=== PATIENT | female | born 1970 | race Caucasian/White ===

== ENCOUNTER 2020-03-27 16:27 | Emergency (ER) | payer MEDICARE, OTHER, SELFPAY ==
[2020-03-27 16:40] VITALS: BP 110/70; PULSE 98; RESP 18; TEMP 36.7; O2SAT 98
--- NOTE | 2020-03-27 16:44 | ED.GENADULT ---
HPI - General Adult General Chief complaint: Skin/Abscess/Foreign Body Stated complaint: Possible Fungus on toe Time Seen by Provider: 03/27/20 16:44 Source: patient and RN notes reviewed Mode of arrival: ambulatory Limitations: no limitations History of Present Illness HPI narrative: This is a 49 years old female presented office for evaluation of right toenail discoloration. She noticed the tip of her great toenail was turning white so she took her red nail turkmen off and noticed some dark color at the bottom her toenail. Denies/recall any injury or trauma to her toe. Denies any associated symptoms with her toe which include pain, redness, or swelling. Denies history of fungal nail toe. She always go to the same nails salon. Related Data Home Medications Medication Instructions Recorded Confirmed aripiprazole 10 mg PO DAILY 03/27/20 03/27/20 benztropine 2 mg PO DAILY 03/27/20 03/27/20 divalproex 1,500 mg PO HS 03/27/20 03/27/20 lamotrigine 450 mg PO HS 03/27/20 03/27/20 venlafaxine 150 mg PO DAILY 03/27/20 03/27/20 Allergies Allergy/AdvReac Type Severity Reaction Status Date / Time No Known Allergies Allergy Verified 03/27/20 16:32 Review of Systems Review of Systems: Narrative: CONSTITUTIONAL: Denies fever, chills. CARDIOVASCULAR: Denies chest pain, palpitation RESPIRATORY: Denies dyspnea GASTROINTESTINAL: Denies abdominal pain, nausea, vomiting SKIN: Reports right great toe with white nail; concerns it might fungal nail MUSCULOSKELETAL: Denies acute back pain NEUROLOGIC: Denies lightheaded All other systems reviewed are negative, except as documented in HPI. PMFSH Past Medical History Medical History Anxiety and depression Tremor of both hands Comments At time of signature, I agree with nursing past medical, surgical, social and family history. There is no relevant family history pertinent to the presenting complaint. Exam Narrative: Exam Narrative: GENERAL: This is a well-nourished, well-developed patient, in no apparent distress. CARDIOVASCULAR: Regular rate and rhythm without murmurs, gallops, or rubs. RESPIRATORY: Clear to auscultation. Breath sounds equal bilaterally. No wheezes, rales, or rhonchi. GASTROINTESTINAL: Abdomen soft, non-tender, nondistended. Bowel sounds are active. No hepato-splenomegaly, or palpable masses. No guarding. NEURO: awake, alert, and oriented to person, place and time. There were no obvious focal neurologic abnormalities. Steady gait EXTREMITIES: ROM in all toes. Right great toe noted subungual hematoma nail; however no needed to do trepanation since it does not hurt with palpation. Jasper Coma Scale Eye Opening: Spontaneous 4 Gurpreet Coma Scale Motor: Obeys Commands 6 Gurpreet Coma Scale Verbal: Oriented 5 Medical Decision Making MDM Narrative Medical decision making narrative: Discharge instructions reviewed with patient, as well as provided in writing per nursing staff. The instructions also include specific and strict return/GO TO THE ER as well as f/u information. All questions have been answered, and the patient deny any further questions with discharge and discharge plan. Differential Diagnosis Differential Diagnosis: tinea, dermatitis, psoriasis Critical Care Time Critical Care Time Critical Care Time: No Discharge Plan Discharge Clinical Impression: Subungual hematoma of great toe Patient Disposition: Home, Self-Care Condition: Stable Instructions: Subungual Hematoma (ED) Additional Instructions: -It does not look like a fungal nail; it is likely caused by trauma/injury to toenail that you did not recall. -You can trim the top of the nail Follow up with your doctor as schedule. Prescriptions: No Action lamotrigine 150 mg tablet 450 mg PO HS RF: 0 venlafaxine 150 mg capsule,extended release 24hr 150 mg PO DAILY RF: 0 divalproex 500 mg tablet extended release 24
== END 2020-03-27 17:00 | disposition home or self-care (01) ==
PROVIDERS: Emergency Provider Nurse Practitioner; PCP Internal Medicine
DX: S90.211A Contusion of right great toe with damage to nail, initial encounter (principal); F41.9 Anxiety disorder, unspecified; F32.9 Major depressive disorder, single episode, unspecified; X58.XXXA Exposure to other specified factors, initial encounter
CPT/HCPCS: 99201; G0463

== ENCOUNTER 2020-08-03 17:31 | Emergency (ER) | payer MEDICARE, OTHER, SELFPAY ==
[2020-08-03 18:06] VITALS: BP 119/57; PULSE 104; RESP 16; TEMP 35.8; O2SAT 98
--- NOTE | 2020-08-03 18:08 | ED.WOUNDLAC ---
HPI - Wound/Laceration General Chief Complaint: Wound/Laceration Stated Complaint: Blister Time Seen by Provider: 08/03/20 18:25 Source: patient and RN notes reviewed Mode of arrival: ambulatory Limitations: no limitations History of Present Illness HPI narrative: 49-year-old female presents with concern for blisters to the second digit of her left hand. Reports 5 small blisters started 3 days ago and came together to be one larger blister. She reports redness, swelling, tenderness surrounding the blisters. Reports similar instances in the past on the same finger, that healed on their own. She denies any fever, body aches, chills, sweats, disuse of the digit, musculoskeletal pain. Extremity Location: Left: hand Related Data Home Medications Medication Instructions Recorded Confirmed aripiprazole 10 mg PO DAILY 03/27/20 08/03/20 benztropine 2 mg PO DAILY 03/27/20 08/03/20 divalproex 1,500 mg PO HS 03/27/20 08/03/20 lamotrigine 450 mg PO HS 03/27/20 08/03/20 venlafaxine 150 mg PO DAILY 03/27/20 08/03/20 fluconazole 150 mg PO ONCE 08/03/20 08/03/20 [id number]-jyuqryhqp-copyldwo 1 inh INHALATION DAILY 08/03/20 08/03/20 [Trelegy Ellipta] Allergies Allergy/AdvReac Type Severity Reaction Status Date / Time No Known Allergies Allergy Verified 08/03/20 18:13 Review of Systems Review of Systems: Narrative: CONSTITUTIONAL: Denies malaise, chills, sweats, or fever. CARDIOVASCULAR: Denies chest pain, palpitations, or edema. RESPIRATORY: Denies cough or dyspnea. SKIN: Reports blisters, tenderness, redness to the second digit of left hand on the palmar aspect MUSCULOSKELETAL: Denies musculoskeletal pain or myalgia. NEUROLOGIC: Denies numbness, weakness All systems reviewed & are unremarkable except as noted in HPI and below PMFSH Past Medical History Medical History (Updated 08/03/20 @ 18:38 by Gloria Umaña NP) Anxiety and depression Tremor of both hands Comments At time of signature, agree with nursing past medical, surgical, social and family history. There is no relevant family history pertinent to the presenting complaint Exam Narrative: Exam Narrative: GENERAL: Well-appearing, well-nourished, and in no acute distress. HEAD: Normocephalic EYES: PERRLA, conjunctivae clear NECK: Supple. CHEST: Speaks in full sentences. No respiratory distress. HEART: Regular rate and rhythm. Normal and equal peripheral pulses. EXTREMITIES: First digit of left hand has normal strength and sensation. 5/5 strength with digit flexion, extension. Range of motion normal. No clubbing, cyanosis, or edema noted. No tenderness. Skin intact. Normal digital cascade with flexion of fingers, median, ulnar and radial nerve intact. Normal sensation of each side of finger. Can perform 'okay' sign, 'cross over finger test of index and middle fingers' and 'thumbs up' sign. No scissoring. Normal thumb opposition. Good capillary refill and radial pulse. Distal capillary refill less than 3 seconds. SKIN: Warn, dry, intact, pink. 3 confluent blisters, fluctuant with small amount of purulent material visible noted to the palmar aspect of the second digit of the left hand between the DIP and PIP joints NEURO: Alert and oriented x3. PSYCH: Normal mood and affect Course Course Emergency Course: Patient is aware of diagnosis, understands and agrees to treatment plan. Anticipatory guidance given. Patient agrees to follow-up as directed and is aware of reasons to seek care at the emergency department. Portions of this record may have been created with voice recognition software Vital Signs Vital signs: Vital Signs Temperature 96.4 F L 08/03/20 18:06 Pulse Rate 104 H 08/03/20 18:06 Respiratory Rate 16 08/03/20 18:06 Blood Pressure 119/57 L 08/03/20 18:06 Pulse Oximetry 98 08/03/20 18:06 Temperature 96.4 F L 08/03/20 18:06 Pulse Rate 104 H 08/03/20 18:06 Respiratory Rate 16 08/03/20 18:06 Blood Pressure 119/57 L 08/03/20 18:06
== END 2020-08-03 18:46 | disposition home or self-care (01) ==
PROVIDERS: Emergency Provider Nurse Practitioner; PCP Internal Medicine
DX: L02.522 Furuncle left hand (principal); F41.9 Anxiety disorder, unspecified; F32.9 Major depressive disorder, single episode, unspecified
CPT/HCPCS: 10160; 87070; 87205; 99213; G0463

== ENCOUNTER 2021-04-23 08:03 | Emergency (ER) | payer MEDICARE, OTHER, SELFPAY ==
[2021-04-23 08:10] VITALS: BP 144/73; PULSE 88; RESP 16; TEMP 37.3; O2SAT 99
--- NOTE | 2021-04-23 08:22 | ED.EYEPROB ---
HPI - Eye Problem General Chief complaint: Eye Problems Stated complaint: left eye Time Seen by Provider: 04/23/21 08:22 Source: patient and RN notes reviewed Mode of arrival: ambulatory Limitations: no limitations History of Present Illness HPI Narrative: 50-year-old female presents with concern for red bump to the left lower eyelid. Reports has been there for several days, reports a small amount of drainage in the corner of her eye when she wakes up. She denies any vision changes, eye redness or pain. Denies any other upper respiratory symptoms. MD chief complaint: other (eyelid problem) Related Data Home Medications Medication Instructions Recorded Confirmed aripiprazole 10 mg PO DAILY 03/27/20 04/23/21 divalproex 1,500 mg PO HS 03/27/20 04/23/21 lamotrigine 450 mg PO HS 03/27/20 04/23/21 venlafaxine 150 mg PO DAILY 03/27/20 04/23/21 [id number]-ljzebercv-qrfngzrm 1 inh INHALATION DAILY 08/03/20 04/23/21 [Trelegy Ellipta] Allergies Allergy/AdvReac Type Severity Reaction Status Date / Time No Known Allergies Allergy Verified 04/23/21 08:16 Review of Systems Review of Systems: CONSTITUTIONAL: Denies malaise, chills, sweats, or fever. EYES: Denies visual changes, redness. Reports red bump on the lower left eyelid with small amount of crusty drainage in the morning ENT: Denies rhinorrhea, congestion, sinus pain, otalgia or sore throat. SKIN: Denies rash or itching. All systems reviewed & are unremarkable except as noted in HPI and below PMFSH Past Medical History Medical History (Updated 04/23/21 @ 08:34 by Gloria Umaña NP) Anxiety and depression Tremor of both hands Comments At time of signature, agree with nursing past medical, surgical, social and family history. There is no relevant family history pertinent to the presenting complaint Exam Narrative: GENERAL: Well-appearing, well-nourished, and in no acute distress. HEAD: Normocephalic, atraumatic. EYES: PERRLA, conjunctivae clear, sclera clear and EOMI. No nystagmus. Erythematous papule noted to the left oral eyelid consistent with hordeolum ENT: Nares clear. Mucous membranes moist. NECK: Supple. CHEST: No respiratory distress. Speaks in full sentences. HEART: Regular rate and rhythm. SKIN: Warm, dry, no rash. NEURO: Alert and oriented x3. PSYCH: Normal mood and affect Course Course Emergency Course: Patient is aware of diagnosis, understands and agrees to treatment plan. Anticipatory guidance given. Patient agrees to follow-up as directed and is aware of reasons to seek care at the emergency department. Portions of this record may have been created with voice recognition software Vital Signs Vital signs: Vital Signs Temperature 99.2 F 04/23/21 08:10 Pulse Rate 88 04/23/21 08:10 Respiratory Rate 16 04/23/21 08:10 Blood Pressure 144/73 H 04/23/21 08:10 Pulse Oximetry 99 04/23/21 08:10 Temperature 99.2 F 04/23/21 08:10 Pulse Rate 88 04/23/21 08:10 Respiratory Rate 16 04/23/21 08:10 Blood Pressure 144/73 H 04/23/21 08:10 Pulse Oximetry 99 04/23/21 08:10 Reviewed. MDM - Eye Problem MDM Narrative Medical decision making narrative: Consideration of the following conditions may be warranted for the presenting problem, they are not final diagnoses: Bacterial conjunctivitis, allergic conjunctivitis, viral conjunctivitis, foreign body, blepharitis, chalazion, hordeolum, corneal abrasion, preseptal cellulitis, orbital cellulitis. No evidence of proptosis, ophthalmoplegia, vision loss, pain with eye movement. Exam findings show no acute concerns or changes; patient is non-toxic appearing and is in no distress. Patient is appropriate for outpatient treatment and follow-up. Critical Care Time Critical Care Time Critical Care Time: No Discharge Plan Discharge Clinical Impression: Hordeolum Qualifiers: Hordeolum type: internum Laterality: left Eyelid: lower Qualified Code(s): H00.025 - Hordeolum i
== END 2021-04-23 08:44 | disposition home or self-care (01) ==
PROVIDERS: Emergency Provider Nurse Practitioner; PCP Internal Medicine
DX: H00.025 Hordeolum internum left lower eyelid (principal); F41.9 Anxiety disorder, unspecified; F32.9 Major depressive disorder, single episode, unspecified
CPT/HCPCS: 99213; G0463

== ENCOUNTER 2022-12-31 08:31 | Emergency (ER) | payer MEDICARE, SELFPAY ==
[2022-12-31 08:40] VITALS: BP 122/67; PULSE 67; RESP 18; TEMP 37.1; O2SAT 99
--- NOTE | 2022-12-31 09:16 | ED.GENADULT ---
HPI - General Adult General Chief complaint: Eye Problems Stated complaint: Eyes Source: patient Mode of arrival: ambulatory Limitations: no limitations History of Present Illness HPI narrative: Patient presents for evaluation of ?heaviness? of bilateral eyes for the last 1-1.5 weeks. She started using a new facial cleanser recently and believes she started just prior to the time of symptom onset. She denies any visual disturbance. 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 She denies any drainage from her eyes. Denies any pruritus that states that she has some mild discomfort bilaterally. She has not tried any therapies to assist with her symptoms. Related Data Home Medications Medication Instructions Recorded Confirmed aripiprazole 10 mg tablet 10 mg PO DAILY 03/27/20 12/31/22 divalproex 500 mg tablet,extended 1,500 mg PO HS 03/27/20 12/31/22 release 24 hr lamotrigine 150 mg tablet 450 mg PO HS 03/27/20 12/31/22 venlafaxine 150 mg 150 mg PO DAILY 03/27/20 12/31/22 capsule,extended release 24 hr fluticasone fur. 200 mcg-umeclid 1 inh inhalation DAILY 08/03/20 12/31/22 62.5 mcg-vilant 25 mcg inhalat.powder (Trelegy Ellipta) Allergies Allergy/AdvReac Type Severity Reaction Status Date / Time No Known Allergies Allergy Verified 04/23/21 08:16 Review of Systems Review of Systems: CONSTITUTIONAL: Denies fever, chills, or sweats. EYES: Reports ?heaviness? of bilateral eyes. Reports some mild discomfort bilaterally. Denies visual changes, redness, or discharge. ENT: Denies rhinorrhea, congestion, sore throat, or otalgia. CARDIOVASCULAR: Denies chest pain, palpitations, or edema. RESPIRATORY: Denies cough or dyspnea. GASTROINTESTINAL: Denies abdominal pain, nausea, vomiting, or diarrhea. GENITOURINARY: Denies dysuria or hematuria. SKIN: Denies rash or itching. MUSCULOSKELETAL: Denies back pain, joint pain, or myalgia. NEUROLOGIC: Denies headache, numbness, dizziness, or weakness. PSYCHIATRIC: Denies anxiety or depression. [facility] Past Medical History Medical History Anxiety and depression COPD (chronic obstructive pulmonary disease) Depression Tremor of both hands Surgical History Surgical History No pertinent past surgical history Family History Family History Mother Family history non-contributory Social History Social History Smoking status: Former smoker Substance use: never Gender identity (if verbalized by the patient): Female Spiritual care concerns: No Exam Narrative: GENERAL: Well-appearing, well-nourished, and in no acute distress. HEAD: Normocephalic, atraumatic. EYES: PERRLA and EOMI. Red reflex intact bilaterally. Normal funduscopic exam bilaterally. There is a small hordeolum to left lower lid. ENT: Nares clear, no rhinorrhea or epistaxis. Mucous membranes moist. Oropharynx without tonsillar hypertrophy exudate or other lesions. Bilateral TMs pearly schwab nonbulging NECK: Supple. No adenopathy or masses. No carotid bruits or JVD CHEST: Clear to auscultation. No respiratory distress. No wheezes rales or rhonchi HEART: Regular rate and rhythm. No murmur heard. Normal peripheral pulses. ABDOMEN: Soft, nontender, nondistended, normal active bowel sounds. EXTREMITIES: Normal range of motion. No edema. SKIN: Warm, dry, no rash. NEURO: No focal deficits. Alert and oriented x3. PSYCH: Normal mood and affect. Course Course Emergency Course: This is a 52-year-old female who presented for evaluation of bilateral eye heaviness. Likely allergic in origin. Could be from outdoor allergens versus new facial cleanser. Will discontinue facial cleanser. Start claritin. Warm compresses for hordeolum. Follow up with prim
== END 2022-12-31 09:21 | disposition home or self-care (01) ==
PROVIDERS: Emergency Provider Nurse Practitioner
DX: H10.13 Acute atopic conjunctivitis, bilateral (principal); H00.015 Hordeolum externum left lower eyelid; J44.9 Chronic obstructive pulmonary disease, unspecified; F41.9 Anxiety disorder, unspecified; F32.A Depression, unspecified
CPT/HCPCS: 99213; G0463

== ENCOUNTER 2023-01-18 14:15 | Emergency (ER) | payer MEDICARE, SELFPAY ==
--- NOTE | ~2023-01-18 | XR_ITS ---
EXAMINATION: XR knee LT min 4V DATE: 01/18/2023 14:47 INDICATION: Left knee pain. TECHNIQUE: 5 views of left knee were obtained. COMPARISON: None. FINDINGS: Bone alignment is normal. No fracture. There is mild tricompartmental osteoarthritis charac terized by tiny osteophytes. No joint space narrowing. No knee joint effusion. IMPRESSION: 1. Mild left knee osteoarthritis. Reviewed, dictated and finalized at location E.
[2023-01-18 14:20] VITALS: BP 128/113; PULSE 75; RESP 20; TEMP 36.2; O2SAT 100
--- NOTE | 2023-01-18 14:22 | ED.LOWEXIN ---
HPI - Extremity Injury (Lower) General Chief Complaint: Extremity Injury, Lower Stated Complaint: left knee injury Time Seen by Provider: 01/18/23 14:22 Source: patient and RN notes reviewed History of Present Illness HPI Narrative: Patient is a 52-year-old female who presents to urgent care with complaints of left knee pain. Patient states she was doing yd work about a week ago and had full body soreness. Patient states that this pain in her left knee is ?different? than her typical aches and pains. Patient states that she did fall directly onto the left knee approximately 2 days after doing yd work. Patient has been wearing a friend's knee brace on the left leg since then. States that pain increases with weight-bearing. Patient has not taken anything [id number]-[id number] for her pain. No other acute complaints. No acute distress noted. Patient aware of the plan of care. Some parts of this dictation were generated by voice recognition software and may contain typographical and/or grammatical inaccuracies. Related Data Home Medications Medication Instructions Recorded Confirmed aripiprazole 10 mg tablet 10 mg PO DAILY 03/27/20 12/31/22 divalproex 500 mg tablet,extended 1,500 mg PO HS 03/27/20 12/31/22 release 24 hr lamotrigine 150 mg tablet 450 mg PO HS 03/27/20 12/31/22 venlafaxine 150 mg 150 mg PO DAILY 03/27/20 12/31/22 capsule,extended release 24 hr fluticasone fur. 200 mcg-umeclid 1 inh inhalation DAILY 08/03/20 12/31/22 62.5 mcg-vilant 25 mcg inhalat.powder (Trelegy Ellipta) Allergies Allergy/AdvReac Type Severity Reaction Status Date / Time No Known Allergies Allergy Verified 04/23/21 08:16 Review of Systems Review of Systems: CONSTITUTIONAL: Denies fever, chills, or sweats. EYES: Denies visual changes, redness, or discharge. ENT: Denies rhinorrhea, congestion, sore throat, or otalgia. CARDIOVASCULAR: Denies chest pain, palpitations, or edema. RESPIRATORY: Denies cough or dyspnea. GASTROINTESTINAL: Denies abdominal pain, nausea, vomiting, or diarrhea. GENITOURINARY: Denies dysuria or hematuria. SKIN: Denies rash or itching. MUSCULOSKELETAL: Reports of left knee pain NEUROLOGIC: Denies headache, numbness, or weakness. All other systems reviewed are negative, except as documented in HPI. [facility] Past Medical History Medical History (Updated 01/18/23 @ 14:59 by NICHOLE Claudio) Anxiety and depression COPD (chronic obstructive pulmonary disease) Depression Tremor of both hands Surgical History Surgical History No pertinent past surgical history Family History Family History Mother Family history non-contributory Social History Social History Smoking status: Former smoker Substance use: never Gender identity (if verbalized by the patient): Female Spiritual care concerns: No Comments At the time of my signature, I reviewed and agree with the nursing past medical, surgical, social, and family history. There is no relevant family history pertinent to the patient complaint. Exam Narrative: GENERAL: This is a well-nourished, well-developed patient, in no apparent distress. HEAD: normocephalic, atraumatic. EYES: PERRL. Sclera clear/white. Vision is grossly intact. EARS: External ears normal, NOSE: External nose normal with no obvious nasal discharge, nares without redness, no rhinorrhea. THROAT: Mucous membranes moist NECK: Neck supple SKIN: warm, intact with no suspicious lesions or rash, good texture and turgor. NEURO: awake, alert, and oriented to person, place and time. There were no obvious focal neurologic abnormalities. EXTREMITIES: No obvious injury to the left knee. No notable edema, ecchymosis, erythema. Positive strong left pedal pulse with capillary refill less than 2 seconds.
== END 2023-01-18 15:02 | disposition home or self-care (01) ==
PROVIDERS: Emergency Provider Nurse Practitioner Family; PCP Family Medicine
DX: M17.12 Unilateral primary osteoarthritis, left knee (principal); Z87.891 Personal history of nicotine dependence; J44.9 Chronic obstructive pulmonary disease, unspecified; F41.9 Anxiety disorder, unspecified; F32.A Depression, unspecified
CPT/HCPCS: 73564; 99213; G0463

== ENCOUNTER 2023-08-23 16:51 | Emergency (ER) | payer MEDICARE, SELFPAY ==
[2023-08-23 16:58] VITALS: BP 151/77; PULSE 73; RESP 16; TEMP 36.4; O2SAT 98
--- NOTE | 2023-08-23 17:53 | ED.NECK ---
HPI - Neck Pain/Injury General Chief Complaint: Neck Pain/Injury Stated Complaint: neck pain Time Seen by Provider: 08/23/23 16:52 Source: patient Mode of arrival: ambulatory Limitations: no limitations History of Present Illness HPI Narrative: Patient is a 52-year-old female who presents with 1 month of left-sided neck pain. Patient has not taken anything for symptoms besides going to the chiropractor. Patient reports pain is only slightly relieved with heat. Patient denies any numbness, tingling weakness to the left arm. Denies any headaches, vision changes, nausea, vomiting, diarrhea. Related Data Home Medications Medication Instructions Recorded Confirmed divalproex 500 mg tablet,extended 1,500 mg PO HS 03/27/20 08/23/23 release 24 hr venlafaxine 150 mg 150 mg PO DAILY 03/27/20 08/23/23 capsule,extended release 24 hr lamotrigine 200 mg tablet 200 mg PO BID 08/23/23 08/23/23 lorazepam 0.5 mg tablet mg 08/23/23 propranolol 40 mg tablet 40 mg PO DAILY 08/23/23 08/23/23 quetiapine 50 mg tablet 50 mg PO TID 08/23/23 08/23/23 trazodone 100 mg tablet mg 08/23/23 Allergies Allergy/AdvReac Type Severity Reaction Status Date / Time No Known Allergies Allergy Verified 08/23/23 17:18 Review of Systems Review of Systems: All systems reviewed & are unremarkable except as noted in HPI and below Constitutional: Constitutional: Denies body ache(s), Denies chills, Denies fatigue, Denies fever(s), Denies headache(s), Denies malaise and Denies weakness Eyes: Eyes: Denies blurry vision, Denies irritation and Denies loss of vision ENT: Denies otalgia, Denies headache(s), Denies nasal discharge, Denies sinus pain and Denies sore throat Cardiovascular: Cardiovascular: Denies chest pain, Denies irregular heart rhythm and Denies dyspnea Respiratory: Respiratory: Denies dyspnea Gastrointestinal: Gastrointestinal: Denies abdominal pain, Denies melena, Denies hematochezia, Denies diarrhea, Denies nausea and Denies vomiting Musculoskeletal: Musculoskeletal: Denies back pain, Denies myalgias, Denies arthralgias and Reports neck pain Integumentary/Breasts: Skin/Breast: Denies pruritus and Denies rash Neurologic: Denies headache(s), Denies loss of vision and Denies weakness Psychiatric: Psychiatric: Reports no additional psychiatric complaints Endocrine: Endocrine: Denies fatigue PMFSH Past Medical History Medical History Anxiety and depression COPD (chronic obstructive pulmonary disease) Depression Tremor of both hands Surgical History Surgical History No pertinent past surgical history Family History Family History Mother Family history non-contributory Social History Social History Smoking status: Former smoker Substance use: never Gender identity (if verbalized by the patient): Female Spiritual care concerns: No Comments At time of signature, agree with nursing past medical, surgical, social and family history. There is no relevant family history pertinent to the presenting complaint. Exam Const: General: cooperative, healthy appearing, comfortable, no acute distress and well nourished Nutritional Appearance: well nourished Orientation/consciousness: patient oriented x3 Limitations: no limitations HENMT: Head: normal to inspection, normocephalic and atraumatic Ears: hearing grossly normal bilaterally and external ears normal Face/Nose/Sinus: Normal external nose present, normal facial exam and face symmetric Face and sinus: normal facial exam and face symmetric Mouth: Yes lip normal Eyes: General: appearance normal, both eyes and all related structures Alignment and Position: alignment normal and position normal Periorbital: periorbital findings normal Eyelids: eyelids no
== END 2023-08-23 18:12 | disposition home or self-care (01) ==
PROVIDERS: Emergency Provider Nurse Practitioner Family; PCP Family Medicine
DX: S16.1XXA Strain of muscle, fascia and tendon at neck level, initial encounter (principal); J44.9 Chronic obstructive pulmonary disease, unspecified; F41.9 Anxiety disorder, unspecified; F32.A Depression, unspecified; Z87.891 Personal history of nicotine dependence; Z79.899 Other long term (current) drug therapy; X58.XXXA Exposure to other specified factors, initial encounter
CPT/HCPCS: 99213; G0463

== ENCOUNTER 2023-08-30 11:24 | Emergency (ER) | payer MEDICARE, SELFPAY ==
[2023-08-30 11:30] VITALS: BP 133/77; PULSE 69; RESP 20; TEMP 36.2; O2SAT 100
[2023-08-30 11:36] VITALS: BP 133/77; PULSE 69; RESP 20; TEMP 36.2; O2SAT 100
--- NOTE | 2023-08-30 11:42 | ED.DENTAL ---
HPI - Dental/Oral General Chief complaint: Dental/Oral Stated complaint: tongue and mouth Time Seen by Provider: 08/30/23 12:15 Source: patient, RN notes reviewed and old records reviewed Mode of arrival: ambulatory Limitations: no limitations History of Present Illness HPI Narrative: 52-year-old female presents to the [facility] with mouth in tongue burning, pain for years. Patient reports it has been intermittent. Has not seek treatment for this in the past. For the last 3 weeks she has been having trouble eating potato chips and spicy food. 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 ? Patient is a smoker Onset (ago): year(s) Related Data Home Medications Medication Instructions Recorded Confirmed divalproex 500 mg tablet,extended 1,500 mg PO HS 03/27/20 08/23/23 release 24 hr venlafaxine 150 mg 150 mg PO DAILY 03/27/20 08/23/23 capsule,extended release 24 hr lamotrigine 200 mg tablet 200 mg PO BID 08/23/23 08/23/23 lorazepam 0.5 mg tablet mg 08/23/23 propranolol 40 mg tablet 40 mg PO DAILY 08/23/23 08/23/23 quetiapine 50 mg tablet 50 mg PO TID 08/23/23 08/23/23 trazodone 100 mg tablet mg 08/23/23 Allergies Allergy/AdvReac Type Severity Reaction Status Date / Time No Known Allergies Allergy Verified 08/23/23 17:18 Review of Systems Review of Systems: All systems reviewed & are unremarkable except as noted in HPI and below Constitutional: Constitutional: Reports no additional constitutional complaints Eyes: Eyes: Reports no additional eye complaints ENT: Reports as per HPI Cardiovascular: Cardiovascular: Reports no additional cardiovascular complaints, Denies chest pain and Denies dyspnea Respiratory: Respiratory: Reports no additional respiratory complaints, Denies chest congestion, Denies cough and Denies dyspnea Gastrointestinal: Gastrointestinal: Reports no additional gastrointestinal complaints, Denies abdominal pain, Denies nausea and Denies vomiting Musculoskeletal: Musculoskeletal: Reports no additional musculoskeletal complaints Integumentary/Breasts: Skin/Breast: Reports system reviewed and no additional complaints, except as docu Neurologic: Reports system reviewed and no additional complaints, except as documented Psychiatric: Psychiatric: Reports no additional psychiatric complaints Allergic/Immunologic: Allergic/Immunologic: Reports no additional allergic/immunologic complaints PMFSH Past Medical History Medical History Anxiety and depression COPD (chronic obstructive pulmonary disease) Depression Tremor of both hands Surgical History Surgical History No pertinent past surgical history Family History Family History Mother Family history non-contributory Social History Social History Smoking status: Former smoker Substance use: never Gender identity (if verbalized by the patient): Female Spiritual care concerns: No Comments At the time of my signature, I reviewed and agree with the nursing past medical, surgical, social, and family history. There is no relevant family history pertinent to the patient complaint. Exam Const: General: cooperative, healthy appearing, comfortable, no acute distress, well developed, alert and well nourished Nutritional Appearance: well nourished and obese Orientation/consciousness: patient oriented x3 Limitations: no limitations HENMT: Head: normal to inspection Ears: hearing grossly normal bilaterally, external ears normal, TM's normal bilaterally, EAC's normal, mastoids normal and no periauricular adenopathy Face/Nose/Sinus: Normal external nose present, Normal nares present, Normal nasal mucous membranes and turbinates present, No nasal discharge present, normal facial exam
== END 2023-08-30 12:30 | disposition left against medical advice (07) ==
PROVIDERS: Emergency Provider Nurse Practitioner; PCP Family Medicine
DX: K14.6 Glossodynia (principal); Z87.891 Personal history of nicotine dependence; J44.9 Chronic obstructive pulmonary disease, unspecified; F41.9 Anxiety disorder, unspecified; F32.A Depression, unspecified
CPT/HCPCS: 99211; G0463

== ENCOUNTER 2024-05-28 09:20 | Emergency (ER) | payer MEDICARE, SELFPAY ==
--- NOTE | ~2024-05-28 | XR_ITS ---
XR knee RT min 4V Ordering provider: Valorie Anand NP History: . gen pain and swelling . Comparison: None. FINDINGS: BONES: Small bony fragment is seen in the superior patella suggestive of avulsion fracture. Otherwise , No acute fracture or dislocation. JOINT SPACES: Normal. SOFT TISSUES: Soft tissue swelling in the area of the insertion of the quadriceps tendon to the santillan la is noted. IMPRESSION: Highly suggestive of avulsion fracture in the area of the superior patella. Adjacent soft tissue swel ling is noted. Reviewed, dictated and finalized at location A. IMPRESSION: Highly suggestive of avulsion fracture in the area of the superior patella. Adj acent soft tissue swelling is noted.
[2024-05-28 09:27] VITALS: BP 128/68; PULSE 94; RESP 16; TEMP 36.7; O2SAT 97
--- NOTE | 2024-05-28 10:21 | ED.LOWEXIN ---
HPI - Extremity Injury (Lower) General Chief Complaint: Extremity Injury, Lower Stated Complaint: Right knee pain Time Seen by Provider: 05/28/24 10:21 Source: patient Mode of arrival: ambulatory Limitations: no limitations History of Present Illness HPI Narrative: 53 yo F with pain and swelling to R knee. Reports pain for the past 3 to 4 wks when ambulatory. past few days pain to R knee constant. Woke up at 3am, R knee throbbing. Noticed swelling this AM. Ambulatory with limp. All systems reviewed and negative except as noted above. Related Data Home Medications Medication Instructions Recorded Confirmed divalproex 500 mg tablet,extended 1,500 mg PO HS 03/27/20 05/28/24 release 24 hr venlafaxine 150 mg 150 mg PO DAILY 03/27/20 05/28/24 capsule,extended release 24 hr lamotrigine 200 mg tablet 200 mg PO BID 08/23/23 05/28/24 quetiapine 50 mg tablet 50 mg PO TID 08/23/23 05/28/24 fluticasone fur. 200 mcg-umeclid 1 inh inhalation DAILY 05/28/24 05/28/24 62.5 mcg-vilant 25 mcg inhalat.powder (Trelegy Ellipta) omeprazole 20 mg capsule,delayed 20 mg PO DAILY 05/28/24 05/28/24 release Allergies Allergy/AdvReac Type Severity Reaction Status Date / Time No Known Allergies Allergy Verified 05/28/24 09:57 Review of Systems Review of Systems: CONSTITUTIONAL: Denies fever, chills, or sweats. EYES: Denies visual changes, redness, or discharge. ENT: Denies rhinorrhea, congestion, sore throat, or otalgia. CARDIOVASCULAR: Denies chest pain, palpitations, or edema. RESPIRATORY: Denies cough or dyspnea. GASTROINTESTINAL: Denies abdominal pain, nausea, vomiting, or diarrhea. GENITOURINARY: Denies dysuria or hematuria. SKIN: Denies rash or itching. MUSCULOSKELETAL: Reports right knee pain and swelling. NEUROLOGIC: Denies headache, numbness, or weakness. PSYCHIATRIC: Denies anxiety or depression. All other systems reviewed are negative, except as documented in HPI. [facility] Past Medical History Medical History Anxiety and depression COPD (chronic obstructive pulmonary disease) Depression Tremor of both hands Surgical History Surgical History No pertinent past surgical history Family History Family History Mother Family history non-contributory Social History Social History Smoking status: Former smoker Substance use: never Gender identity (if verbalized by the patient): Female Spiritual care concerns: No Comments At time of signature, agree with nursing past medical, surgical, social and family history. There is no relevant family history pertinent to the presenting complaint. Exam Narrative: GENERAL: This is a well-nourished, well-developed patient, in no apparent distress. HEAD: normocephalic, atraumatic. EYES: PERRL. Sclera clear/white. Vision is grossly intact. EARS: External ears normal NOSE: External nose normal NECK: Neck supple, non-tender without lymphadenopathy, masses or thyromegaly. CARDIOVASCULAR: Regular rate and rhythm without murmurs, gallops, or rubs. RESPIRATORY: Clear to auscultation. Breath sounds equal bilaterally. No wheezes, rales, or rhonchi. SKIN: warm, Dry, intact with no suspicious lesions or rash, good texture and turgor. NEURO: awake, alert, and oriented to person, place and time. There were no obvious focal neurologic abnormalities. EXTREMITIES: No tenderness on exam of right knee. Mild Generalized swelling noted. no erythema or warmth. Anterior and posterior drawer testing negative. Course Course Level of Care: Express Care Visit Vital Signs Vital signs: Vital Signs Temperature 36.7 C 05/28/24 09:27 Pulse Rate 94 05/28/24 09:27 Respiratory Rate 16 05/28/24 09:27 Blood Pressure 128/68 05/28/24 09:27 Pul
== END 2024-05-28 11:05 | disposition home or self-care (01) ==
PROVIDERS: Emergency Provider Nurse Practitioner Family; PCP Family Medicine
DX: S83.104A Unspecified dislocation of right knee, initial encounter (principal); F41.8 Other specified anxiety disorders; J44.9 Chronic obstructive pulmonary disease, unspecified
CPT/HCPCS: 73564; 99213; G0463; L1830

== ENCOUNTER 2025-08-22 09:49 | Emergency (ER) | payer MEDICARE, SELFPAY ==
--- OUTSIDE RECORDS SUMMARY | 2025-08-22 09:51 | XMS_ITS | Encounter Summary ---
Author Organization [facility] Health Address [address] [place] [address] Care Team Providers Care Livestock Handler Name Role Phone Unavailable Primary Care Provider Unavailabl e Plan of Treatment Not on file Visit Diagnoses Not on file Insurance [employer] MEDICARE
--- OUTSIDE RECORDS SUMMARY | 2025-08-22 09:51 | XMS_ITS | Clinical Summary ---
Author Organization [facility] Address [address] [facility], [facility] [address] [place] [address] Phone Care Team Providers Care Budget Specialist Name Role Phone Cem Tai MD Unavailable [phone] Allergies No known active allergies Medications ARIPiprazole (ABILIFY) 10 MG Tablet Take 10 mg by mouth. 06/14/2020 Active divalproex (DEPAKOTE) 500 MG Tablet Delayed Response Take 500 mg by mouth. 2 at bedtime Active lamoTRIgine (LAMICTAL) 150 MG Tablet 200 mg. 06/25/2019 Active LORazepam (ATIVAN) 0.5 MG Tablet Take 0.5 mg by mouth. Active venlafaxine (EFFEXOR-XR) 150 MG CAPSULE SR 24 HR 150 mg. 08/04/2015 Active atorvastatin (LIPITOR) 40 MG Tablet 05/07/2020 Active guaiFENesin-cod eine (Cheratussin AC) 100-10 MG/5ML SyrupIndication s:Cough Take 5 mL by mouth every 4 hours as needed for Cough. 120 mL 07/19/2020 Active Fluticasone-Ume clidin-Vilant (TRELEGY ELLIPTA IN) take by inhalation. Active atomoxetine (STRATTERA) 40 MG Capsule Take 40 mg by mouth daily. Active Lumateperone Tosylate (CAPLYTA PO) Take 40 mg by mouth. Active traZODone (DESYREL) 100 MG Tablet TAKE 1/2 TO 1 TABLET BY MOUTH AT BEDTIME NEEDED FOR INSOMNIA 10/19/2022 Active propranolol (INDERAL) 40 MG Tablet Take 1 Tablet by mouth 3 times daily. 90 Tablet 3 12/15/2022 Active Active Problems No known active problems Immunizations Immunization Administration Dates Next Due Influenza Vaccine 07/17/2015 Influenza Vaccine, Quadrivalent, PF /01/2021,05/01/2020,05/06/2018,2015 Influenza, Injectable, Quadrivalent 06/18/2019,1 Influenza, Seasonal, Injecta ble, Undefined 04/27/2017,07/18/2015,06/06/2014,2012,05/15/2009 MMR Vaccine 01/22/1997 TDAP Vaccine 04/02/2008 Zoster Vaccine Recombinant 11/26/2023 Family History Medical History Relation Name Comments Migraines Mother Relation Name Status Comments Mother Social History Tobacco Use Types Packs/Day Years Used Date Smoking Tobacco: Every Day Smokeless Tobacco: Never Alcohol Use Standard Drinks/Week Comments Not Currently 0 (1 standard drink = 0.6 oz pur e alcohol) Comments Unknown Sex and Gender Information Value Date Recorded Sex Assigned at Not on file Legal Sex Female 11:52 PM CDT Gender Identity Not on file Sexual Orientation Not on file Last Filed Vital Signs Vital Sign Reading Time Taken Comments Blood Pressure 120/80 12/15/2022 1:08 PM CDT Pulse 70 12/15/2022 1:08 PM CDT Temperature 35.9 C (96.6 F) 12/15/2022 1:08 PM CDT Respiratory Rate 18 12/15/2022 1:08 PM CDT Oxygen Saturation 98% 12/15/2022 1:08 PM CDT Inhaled Oxygen Concentration - - Weight 94.5 kg (208 lb 4.8 oz) 12/15/2022 1:08 P M CDT Height 162.6 cm (5' 4) 12/15/2022 1:08 PM CDT Body Mass Index 35.75 12/15/2022 1:08 PM CDT Plan of Treatment Health Maintenance Due Date Last Done Comments Hepatitis C Virus (HCV) Screening 1969 Mammogram 1969 Hepatitis B Immunization (1 of 3 - 19+ 3-dose series) 1988 Pap Smear 1990 Cervical Cancer Screening (CCS) 11/23/1999 HPV/Cotest 11/23/1999 Cologuard 2014 Immunochemical Fecal Occult Blood 2014 Medicare Initial AWV [id number] 03/27/2019 Pneumococcal Immunization (50+ years) (1 of 1 - PCV) 11/23/2019 Zoster Immunization (2 of 2) 01/21/2024 11/26/2023 Influenza Immunization (#1) 2025 08/2 01/2021, 05/01/2020, 06/18/2019, Additional history exists SARS-COV-2 Immunization ( season) 2025 06/14/2021, 11/20/2020, 10/23/2020 Colonoscopy 06/15/2030 06/15/2020 Colorectal Cancer Screening 06/15/2030 Respiratory Syncytial Virus (RSV) Immunization (Adult) (1 - 1-dose 75+ series) 2044 DTaP/Tdap/Td Immunization Discontinued 04/02/2008 TdaP Immunization Discontinued 04/02/2008 Human Papillomavirus (HPV) Immunization (No Doses Required) Completed Meningococcal Immunization (ACWY) Aged Out No longer eligible based on patient's age to complete this topic Rotavirus Immunization Aged Out No lo nger eligible based on patient's age to complete this topic Insurance MEDICARE C AETNA IPA Care Teams Budget Specialist Relationship Specialty Start Date End Date Cem Tai MD [address] [place] [address] Consulting Physician Neurology 10/30/22
--- OUTSIDE RECORDS SUMMARY | 2025-08-22 09:51 | XMS_ITS | Encounter Summary ---
Author Organization [facility] Healthcare Address [address] [place] [address] Care Team Providers Care Brickmason Apprentice Name Role Phone Tha Fisher MD Primary Care Provider [phone] Son Chong MD Unavailable [phone] Encounter Details Date Type Department Care Team (Late st Contact Info) Description 08/10/2025 Results Follow-Up [facility] [address] [place] [address] Joaquina Almazan, MARI [address] [place] [address] Protime-INR, CBC with auto differential, Thyroid Function [address], Additional followed-up results: 3 Social History Tobacco Use Types Packs/Day Years Used Date Smoking Tobacco: Every Day Cigarettes 2 36 Started: 1989 Smokeless Tobacco: Never Alcohol Use Standard Drinks/Week Comments No 0 (1 standard drink = 0.6 oz pur e alcohol) [facility] Utilities Answer Date Recorded In the past 12 months has [employer], gas, oil, or water indoo.rs threatened to shut off services in your home? No 04/17/2024 Humiliation, Afraid, Rape, and Kick questionnair e Answer Date Recorded Within the last year, have y ou been afraid of your partner or ex-partner? No 02/21/2023 Within the last year, have y ou been humiliated or emotionally abused in other ways by your partner or ex-partner? No Within the last year, have y ou been kicked, hit, slapped, or otherwise physically hurt by your partner or ex-partner? No 02/21/2023 Within the last year, have y ou been raped or forced to have any kind of sexual activity by your partner or ex-partner? No 02/21/2023 Social Connection and Isolation Panel Answer Date Recorded In a typical week, how many times do you talk on the phone with family, friends, or neighbors? Once a week 04/17/2024 How often do you get together with friends or re latives? Once a week 04/17/2024 How often do you attend amish or oriental orthodox serv ices? Never 04/17/2024 Do you belong to any clubs o r organizations such as amish groups, unions, fraternal or athletic groups, or school groups? No 04/17/2024 How often do you attend meet ings of the clubs or organizations you belong to? Never 04/17/2024 Are you , , di vorced, , never , or living with a partner? 04/17/2024 Overall Financial Resource Strain (CARDIA) Answe r Date Recorded How hard is it for you to pa y for the very basics like food, housing, medical care, and heating? Not hard at all 04/17/2024 PHQ-2 Answer Date Recorded PHQ-2 Total Score (If total score is 3 or more points, staff should administer the PHQ-9) 2 08/05/2025 [facility] - Occupational Stress Questionnaire Answer Date Recorded Do you feel stress - tense, restless, nervous, or anxious, or unable to sleep at night because your mind is troubled all the time - these days? Very much 02/21/2023 Exercise Vital Sign Answer Date Recorde d On average, how many days pe r week do you engage in moderate to strenuous exercise (like a brisk walk)? 0 days 02/21/2023 On average, how many minutes do you engage in exercise at this level? 0 min 02/21/2023 Hunger Vital Sign Answer Date Recorded Within the past 12 months, y ou worried that your food would run out before you got the money to buy more. Never true 04/17/20 24 Within the past 12 months, t he food you bought just didn't last and you didn't have money to get more. Never true 04/17/2024 PRAPARE - Transportation Answer Date Re corded In the past 12 months, has l ack of transportation kept you from medical appointments or from getting medications? No 03/28 In the past 12 months, has l ack of transportation kept you from meetings, work, or from getting things needed for daily living? No 04/17/2024 Housing Stability Vital Sign Answer Demetrius e Recorded In the last 12 months, was t here a time when you were not able to pay the mortgage or rent on time? No 02/21/2023 In the last 12 months, how many places have you lived? 1 02/21/2023 In the last 12 months, was t here a time when you did not have a steady place to sleep or slept in a longterm (including now)? No 02/21/2023 Housing Stability Vital Sign Answer Demetrius e Recorded In the last 12 months, was t here a time when you were not able to pay the mortgage or rent on time? No 04/17/2024 In the past 12 months, how m any times have you moved where you were living? 0 04/17/2024 At any time in the past 12 m [facility], were you homeless or living in a longterm (including now)? No 04/17/2024 AUDIT-C Answer Date Recorded Frequency of Alcohol Consumption Not on file 05/04/2025 Q2: How many drinks containi ng alcohol do you have on a typical day when you are drinking? Patient does not drink Frequency of Binge Drinking Not on file 03/2025 Personal Safety Answer Date Recorded Have you ever been in or are you currently in a harmful physical or emotional relationship or is someone making you feel afraid or unsafe? 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 COLORIST FORMULATOR Gender Identity Not on file Sexual Orientation Not on file Occupation Industry Job Start Date Job End Date none Not on file Not on file Not on file documented as of this encounter Plan of Treatment Not on file documented as of this encounter Visit Diagnoses Not on filedocumented in this encounter Care Teams Brickmason Apprentice Relationship Specialty Start Date End Date Tha Fisher MD [address] [place] [address] PCP - General Family Medicine 02/21/23 Son Chong MD [address] [facility] [address] [place] [address] Consulting Physician Obstetrics and Gynecology 11/27/23 documented as of this encounter
--- OUTSIDE RECORDS SUMMARY | 2025-08-22 09:51 | XMS_ITS | Clinical Summary ---
Author Organization [facility] Health Address [address] [place] [address] Care Team Providers Care Spinner Open End Name Role Phone Unavailable Primary Care Provider Unavailabl e Social History Tobacco Use Types Packs/Day Years Used Date Smoking Tobacco: Never Assessed Comments Unknown Sex and Gender Information Value Date Recorded Sex Assigned at Not on file Legal Sex Female 10:34 AM [facility] Gender Identity Not on file Sexual Orientation Not on file Plan of Treatment Health Maintenance Due Date Last Done Comments Dental Oral Exam 1969 Dental Prophylaxis 1969 Dental X-Ray: Bitewings 1969 Dental X-Ray: Full Mouth 1969 Dental X-Ray: Panoramic 1969 Insurance [employer] MEDICARE
--- OUTSIDE RECORDS SUMMARY | 2025-08-22 09:52 | XMS_ITS | Data Portability ---
Author Organization 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 : will rx diflucan and desitin would like valtrex for HSV prophylaxis. otherwise no new complaints Not available 06/08/2020 14:21:27 08/03/2020 08/03/2020 Severe groin yeast on rt. 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 Menopause relatively benign biggest health concern is obviously lung disease and smoking Not available 03/31/2024 12:05:05 Plan of Treatment Reminders Order Date Submit Date Provider Last Modified By Organization Details Last Modified Time Details Appointments None recorded. Lab cytology report, thin prep, smear or scraping, cervical or vaginal 2023 024 [facility], [address], [place], [address], 4 07:22:29 cytology report, thin prep, smear or scraping, cervical or vaginal 2021 022 [facility], [address], [place], [address], 3 07:11:17 unlisted lab - igp, rfx aptima HPV ascu 2019 020 [facility], [address], [place], [address], 0 07:11:35 Referral None recorded. Procedures None recorded. Surgeries None recorded. Imaging MAMMO, screening, digital, bilateral 2021 022 [facility], [address] [facility] , [place], [address], 3 13:45:25 MAMMO, screening, digital, bilateral 2019 020 [facility] Not available 0 10:43:02 Medication Orders Diflucan 150 mg tablet 2019 020 [id number], [address], [place], [place], [id number], 2 09:42:38 valacyclov ir 500 mg tablet 2019 020 [id number], [address], [place], [place], [id number], 4 11:36:19 Diflucan 150 mg tablet 2019 020 [id number], [address], [place], [place], [id number], 09:42:38 Patient TargetsNo targets recorded. Patient Instructions Encounter Date Encounter Id Patient Instructions Last Modified By Organization Details Last Modified Time 06/08/2020 [id number] learning about breast cancer screening Not available 06/08/2020 14:19:30 08/24/2022 [id number] A healthy lifestyle: care instructions Not available 08/24/2022 12:04:51 Quitting Tobacco : Care Instructions Not available 08/24/2022 12:04:51 learning about breast cancer screening Not available 08/24/2022 12:04:51 learning about mood disorders Not available 08/24/2022 12:04:51 03/31/2024 [id number] A healthy lifestyle: care instructions Not available 03/31/2024 11:47:40 Quitting Tobacco : Care Instructions [email or web address] Not available 03/31/2024 11:47:40 Reason for Referral None Reported. Results Created Date Observation Date Name Description Value Unit Range Abnormal Flag Note LastModifiedBy Organization Detail LastModifiedTime 06/08/2006/11/2020 pap, IG + refle x HR HPV diagnosis: Commen t NEGAT SUSANNA FOR INTRA EPITH ELIAL LESIO N OR RADHA GAN . THIS SPECI MEN WAS RESCR EENED PART OF OUR QUALI TY CONTR OL PROGR AM. Not Available [facility] ([facility]) [address] [place], [address], 06/12/2020 07:11:35 06/08/2006/11/2020 pap, IG + refle x HR HPV specimen adequacy: Commen t Satis facto ry for evalu ation . Not Available [facility] ([facility]) [address] [place], [address], 06/12/2020 07:11:35 06/08/2006/11/2020 pap, IG + refle x HR HPV clinician provided ICD10: Commen t Z01.4 19 Not Available [facility] ([facility]) [address] [place], [address], 06/12/2020 07:11:35 06/08/2006/11/2020 pap, IG + refle x HR HPV performed by: Modesto Webber , Cytot echno logis t Not Available [facility] ([facility]) [address] [place], [address], 06/12/2020 07:11:35 06/08/2006/11/2020 pap, IG + refle x HR HPV QC reviewed by: Modesto nguyen, Cytot echno logis t (ASCP ) Not Available [facility] ([facility]) [address] [place], [address], 06/12/2020 07:11:35 06/08/2006/11/2020 pap, IG + refle x HR HPV . . Not Available [facility] ([facility]) [address] [place], [address], 06/12/2020 07:11:35 06/08/2006/11/2020 pap, IG + refle x HR HPV note: Modesto mendoza The Pap smear is a scree shannan test desig joel to aid in the detec tion of pepito ligna nt and malig nant condi tions of the uteri ne cervi x. It is not a diagn ostic proce dure and shoul d not be used as the sole means of detec ting cervi manuela cance r. Both false -posi tive and false -nega tive repor ts do occur . Not Available [facility] ([facility]) [address] [place], [address], 06/12/2020 07:11:35 06/08/2006/11/2020 pap, IG + refle x HR HPV test methodology: Modesto mendoza This liqui d based ThinP rep(R ) pap test was scree joel with the use of an image guide d syste m. Not Available [facility] ([facility]) [address] [facility], [place], [address], 06/12/2020 07:11:35 06/08/20 20 06/11/2020 pap, IG + refle x HR HPV . Commen t The HPV DNA refle x crite batsheva were not met with this speci men resul t there fore, no HPV testi ng was perfo rmed. Not Available [facility] ([facility]) [address] [facility], [place], [address], 06/12/2020 07:11:35 08/24/20 22 09/01/2022 IGP, RFX APTIM A HPV ASCU diagnosis: Commen t abnormal EPITH ELIAL CELL ABNOR MALIT Y. ATYPI MANUELA SQUAM OUS CELLS OF UNDET ERMIN ED SIGNI FICAN CE (ASC- US). Not Available [facility] ([facility]) [address] [facility], [place], [address], 09/05/2022 07:11:17 08/24/20 22 09/01/2022 IGP, RFX APTIM A HPV ASCU recommendati on: Commen t abnormal Sugge st follo w up as clini tg appro priat e. Not Available [facility] ([facility]) [address] [facility], [place], [address], 09/05/2022 07:11:17 08/24/20 22 09/01/2022 IGP, RFX APTIM A HPV ASCU specimen adequacy: Commen t Satis facto ry for evalu ation . Endoc ervic al and/o r squam ous metap lasti c cells (endo cervi manuela compo nent) are prese nt. Not Available [facility] ([facility]) [address] [facility], [place], [address], 09/05/2022 07:11:17 08/24/20 22 09/01/2022 IGP, RFX APTIM A HPV ASCU clinician provided ICD10: Modesto t Z87.4 2 Not Available [facility] ([facility]) [address] [place], [address], 09/05/2022 07:11:17 08/24/20 22 09/01/2022 IGP, RFX APTIM A HPV ASCU performed by: Modesto newell , Cytot saskia arriaza t (ASCP ) Not Available [facility] ([facility]) [address] [place], [address], 09/05/2022 07:11:17 08/24/20 22 09/01/2022 IGP, RFX APTIM A HPV ASCU electronical ly signed by: Modesto Lerner MD, Patho logis t Not Available [facility] ([facility]) [address] [place], [address], 09/05/2022 07:11:17 08/24/20 22 09/01/2022 IGP, RFX APTIM A HPV ASCU . . Not Available [facility] ([facility]) [address] [place], [address], 09/05/2022 07:11:17 08/24/20 22 09/01/2022 IGP, RFX APTIM A HPV ASCU pathologist provided ICD10: Modesto mendoza R87.6 10 Not Available [facility] ([facility]) [address] [place], [address], 09/05/2022 07:11:17 08/24/20 22 09/01/2022 IGP, RFX APTIM A HPV ASCU note: Modesto mendoza The Pap smear is a scree shannan test desig joel to aid in the detec tion of pepito ligna nt and malig nant condi tions of the uteri ne cervi x. It is not a diagn ostic proce dure and shoul d not be used as the sole means of detec ting cervi manuela cance r. Both false -posi tive and false -nega tive repor ts do occur . Not Available [facility] ([facility]) [address] [facility], [place], [address], 09/05/2022 07:11:17 08/24/20 22 09/01/2022 IGP, RFX APTIM A HPV ASCU test methodology: Commen t This liqui d based ThinP rep(R ) pap test was carmen maldonado with the use of an image guide hever arnold. Not Available [facility] ([facility]) [address] [facility], [place], [address], 09/05/2022 07:11:17 08/24/20 22 09/01/2022 IGP, RFX APTIM A HPV ASCU . Commen t See below for HPV testi ng resul ts. Not Available [facility] ([facility]) [address] [facility], [place], [address], 09/05/2022 07:11:17 08/24/20 22 09/04/2022 HPV APTIM A HPV aptima Negati ve negati ve This nucle ic acid ampli ficat ion test detec ts fourt een high- risk HPV types (16,1 8,31, 33,35 ,39,4 5,51, 52,56 ,58,5 9,66, 68) witho ut diffe renti ation . Not Available [facility] ([facility]) [address] [facility], [place], [address], 09/05/2022 07:11:18 03/31/20 24 04/03/2024 IGP, RFX APTIM A HPV ASCU diagnosis: COMMEN T NEGAT SUSANNA FOR INTRA EPITH ELIAL SANDRO N OR RADHA GAN . Not Available [facility] ([facility]) [address] [facility], [place], [address], 04/04/2024 07:22:29 03/31/20 24 04/03/2024 IGP, RFX APTIM A HPV ASCU specimen adequacy: COMMEN T Satis facto ry for evalu ation . Endoc ervic al and/o r squam ous metap lasti c cells (endo cervi manuela compo nent) are prese nt. Not Available [facility] ([facility]) [address] [place], [address], 04/04/2024 07:22:29 03/31/20 24 04/03/2024 IGP, RFX APTIM A HPV ASCU clinician provided ICD10: MODESTO Mendoza Z01.4 19 Not Available [facility] ([facility]) [address] [place], [address], 04/04/2024 07:22:29 03/31/20 24 04/03/2024 IGP, RFX APTIM A HPV ASCU performed by: MODESTO maravilla, Cytoreji mendoza (ASCP ) Not Available [facility] ([facility]) [address] [place], [address], 04/04/2024 07:22:29 03/31/20 24 04/03/2024 IGP, RFX APTIM A HPV ASCU . . Not Available [facility] ([facility]) [address] [place], [address], 04/04/2024 07:22:29 03/31/20 24 04/03/2024 IGP, RFX APTIM A HPV ASCU note: MODESTO Mendoza The Pap smear is a scree shannan test desig joel to aid in the detec tion of pepito ligna nt and malig nant condi tions of the uteri ne cervi x. It is not a diagn ostic proce dure and shoul d not be used as the sole means of detec ting cervi manuela cance r. Both false -posi tive and false -nega tive repor ts do occur . Not Available [facility] ([facility]) [address] [place], [address], 04/04/2024 07:22:29 03/31/20 24 04/03/2024 IGP, RFX APTIM A HPV ASCU test methodology: COMMEN T This liqui d based ThinP rep(R ) pap test was carmen maldonado with the use of an image guide hever guevara Not Available [facility] ([facility]) [address] [facility], [place], [address], 04/04/2024 07:22:29 03/31/20 24 04/03/2024 IGP, RFX APTIM A HPV ASCU . COMMEN T The HPV DNA refle x crite batsheva were not met with this speci men resul t there fore, no HPV testi ng was perfo rmed. Not Available [facility] ([facility]) [address] [facility], [place], [address], 04/04/2024 07:22:29 06/10/20 20 06/09/2020 MAMMO , carmen campbell, digit al, bilat eral No observ ation record ed. [address] [place], [place], [address], 06/11/2020 10:01:25 09/16/19 21 08/30/2020 US, pelvi s, trans abdom inal + trans vagin al No observ ation record ed. BARCODE Not Available 2020 12:34:30 09/16/19 21 08/30/2020 CT, abdom en + pelvi s, w/ contr ast No observ ation record ed. BARCODE Not Available 2020 12:40:42 11/28/19 24 11/28/2023 MAMMO , carmen campbell, digit al, bilat eral No observ ation record ed. [address] [place], [address], 11/29/2023 16:02:44 02/05/20 25 02/04/2025 MAMMO , carmen campbell, digit al, bilat eral No observ ation record ed. [address] [place], [address], 02/05/2025 10:44:21 Result Notes None recorded. Problems Name Problem SNOMED Code Status Onset Date Resolution Date Notes Provider Name and Address Organization Details Recorded Time Cystocele 017122144 Active Sheila astorga [place] null, [place] - SI 6 11:00:29 Candidiasis of skin 38728382 Active Sheila Pascal gauriSUSANA null, [place] - SIF 6 11:00:29 Female urinary stress incontinence 12832427 Active Sheila astorga [place] null, [place] - SIF 6 11:00:29 Dysplasia of cervix 03471028 Active Ezra Segundo MD Attn: Kaley herndon,[address] [facility], [place], [address], [facility] 6 11:27:25 Problem Notes None recorded. 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 Procedure Notes None recorded. Medical Equipment None Reported. Allergies No known drug allergies Medications Name Sig Start Date Stop Date Status Note LastModified by Organization Details LastModified Time amoxicillin 500 mg capsule TAKE 1 CAPSULE BY MOUTH EVERY 8 HOURS FOR 7 DAYS 03/31 completed Not Available Not Available Not Available fluconazole 100 mg tablet 08/24 completed Not Available Not Available Not Available atorvastati n 40 mg tablet 03/31 completed Not Available Not Available Not Available clotrimazol e 10 mg erika 08/24 completed Not Available Not Available Not Available lamotrigine 150 mg tablet TAKE 2 TABLETS BY MOUTH EVERY NIGHT 12/29 /2022 completed Not Available Not Available Not Available primidone 50 mg tablet 08/24 completed Not Available Not Available Not Available bupropion HCl SR 150 mg tablet,12 hr sustained-r elease 08/24 completed Not Available Not Available Not Available atorvastati n 80 mg tablet TAKE 1 TABLET BY MOUTH EVERY DAY AT NIGHT active Not Available Not Available No t Available nystatin 100,000 unit/mL oral suspension 08/24 completed Not Available Not Available Not Available venlafaxine ER 75 mg capsule,ext ended release 24 hr 08/24 completed Not Available Not Available Not Available doxycycline hyclate 100 mg capsule 08/24 completed Not Available Not Available Not Available lamotrigine 200 mg tablet TAKE 1 TABLET BY MOUTH TWICE A DAY active Not Available Not Available No t Available tizanidine 2 mg tablet TAKE 1 TABLET BY MOUTH EVERY 6 HOURS NEEDED FOR MUSCLE SPASMS. active Not Available Not Available No t Available clindamycin HCl 300 mg capsule 08/24 completed Not Available Not Available Not Available azithromyci n 250 mg tablet TAKE DIRECTED 08/24 completed Not Available Not Available Not Available ofloxacin 0.3 % eye drops ADMINISTE R 2 DROPS INTO THE LEFT EYE 4 (FOUR) TIMES A DAY active Not Available Not Available No t Available fluconazole 150 mg tablet one po every 7 days for three weeks 08/24 completed Not Available Not Available Not Available benzonatate 200 mg capsule 08/24 completed Not Available Not Available Not Available prednisone 20 mg tablet TAKE 1 TABLET BY MOUTH DAILY 03/31 completed Not Available Not Available Not Available quetiapine 200 mg tablet TAKE 1 TABLET BY MOUTH EVERYDAY AT BEDTIME active Not Available Not Available No t Available venlafaxine ER 150 mg capsule,ext ended release 24 hr TAKE 1 CAPSULE BY MOUTH EVERY DAY IN THE MORNING active Not Available Not Available No t Available penicillin V potassium 500 mg tablet 08/24 completed Not Available Not Available Not Available topiramate 25 mg tablet 08/24 completed Not Available Not Available Not Available metronidazo le 500 mg tablet 08/24 completed Not Available Not Available Not Available acetaminoph en 300 mg-codeine 30 mg tablet 08/24 completed Not Available Not Available Not Available divalproex 500 mg tablet,ximena yed release TAKE 3 TABLETS BY MOUTH AT BEDTIME active Not Available Not Available No t Available valacyclovi r 500 mg tablet TK 1 T PO QD 03/31 completed Not Available Not Available Not Available sulfamethox azole 800 mg-trimetho prim 160 mg tablet TAKE 1 TABLET BY MOUTH TWICE DAILY FOR 7 DAYS 03/31 completed Not Available Not Available Not Available aspirin 81 mg tablet,ximena yed release TAKE 1 TABLET BY MOUTH EVERY DAY active Not Available Not Available No t Available quetiapine 100 mg tablet 08/24 completed Not Available Not Available Not Available amitriptyli ne 50 mg tablet 08/24 completed Not Available Not Available Not Available amoxicillin 500 mg tablet TAKE ONE TABLET BY MOUTH EVERY 8 HOURS UNTIL ALL TAKEN 03/31 completed Not Available Not Available Not Available vancomycin 125 mg capsule 08/24 completed Not Available Not Available Not Available oxycodone-a cetaminophe n 5 mg-325 mg tablet TAKE ONE TABLET BY MOUTH EVERY 4 HOURS NEEDED FOR PAIN 03/31 completed Not Available Not Available Not Available propranolol 10 mg tablet 08/24 completed Not Available Not Available Not Available propranolol 40 mg tablet TAKE 1 TABLET BY MOUTH THREE TIMES A DAY active Not Available Not Available No t Available amoxicillin 875 mg tablet TAKE 1 TABLET BY MOUTH EVERY 12 HOURS FOR 10 DAYS 03/31 completed Not Available Not Available Not Available amitriptyli ne 25 mg tablet 08/24 completed Not Available Not Available Not Available lorazepam 0.5 mg tablet TAKE 1 TABLET BY MOUTH TWICE A DAY NEEDED FOR ANXIETY active Not Available Not Available No t Available trazodone 100 mg tablet TAKE 2 TABLETS BY MOUTH AT BEDTIME active Not Available Not Available No t Available baclofen 10 mg tablet TAKE 1 TABLET BY MOUTH TWICE DAILY 03/31 completed Not Available Not Available Not Available lithium carbonate 300 mg capsule 08/24 completed Not Available Not Available Not Available Bleph-10 10 % eye drops 08/24 completed Not Available Not Available Not Available cephalexin 500 mg capsule 08/24 completed Not Available Not Available Not Available divalproex ER 500 mg tablet,exte nded release 24 hr 08/24 completed Not Available Not Available Not Available polymyxin B sulfate 10,000 unit-trimet hoprim 1 mg/mL eye drops 08/24 completed Not Available Not Available Not Available benztropine 1 mg tablet 08/24 completed Not Available Not Available Not Available benztropine 2 mg tablet TAKE 1 TABLET BY MOUTH DAILY 08/24 completed Not Available Not Available Not Available mupirocin 2 % topical ointment APPLY TO THE AFFECTED AREA TWICE DAILY 08/24 completed Not Available Not Available Not Available oxycodone-a cetaminophe n 7.5 mg-325 mg tablet TAKE 1 TABLET EVERY 6 HOURS NEEDED FOR PAIN active Not Available Not Available No t Available methylpredn isolone 4 mg tablets in a dose pack TAKE 6 TABLETS ON DAY 1 DIRECTED ON PACKAGE AND DECREASE BY 1 TAB EACH DAY FOR A TOTAL OF 6 DAYS 03/31 completed Not Available Not Available Not Available albuterol sulfate HFA 90 mcg/actuati on aerosol inhaler INHALE 2 PUFFS EVERY 6 HOURS NEEDED FOR WHEEZING active Not Available Not Available No t Available trihexyphen idyl 2 mg tablet 08/24 completed Not Available Not Available Not Available propranolol 20 mg tablet TAKE 1 TABLET BY MOUTH THREE TIMES DAILY 03/31 completed Not Available Not Available Not Available loratadine 10 mg tablet TAKE 1 TABLET BY MOUTH DAILY 03/31 completed Not Available Not Available Not Available naproxen 500 mg tablet 03/31 completed Not Available Not Available Not Available amoxicillin 875 mg-potassiu m clavulanate 125 mg tablet TAKE 1 TABLET BY MOUTH 2X DAILY UNTIL GONE active Not Available Not Available No t Available Amphetamine Salt Combo 30 mg tablet 08/24 completed Not Available Not Available Not Available aripiprazol e 10 mg tablet TAKE 1/2 TABLET BY MOUTH DAILY 03/31 completed Not Available Not Available Not Available aripiprazol e 15 mg tablet 08/24 completed Not Available Not Available Not Available aripiprazol e 20 mg tablet 08/24 completed Not Available Not Available Not Available atomoxetine 40 mg capsule TAKE 1 CAPSULE BY MOUTH DAILY 03/31 completed Not Available Not Available Not Available Abilify 5 mg tablet 08/24 completed Not Available Not Available Not Available nitrofurant oin monohydrate /macrocryst als 100 mg capsule 08/24 completed Not Available Not Available Not Available quetiapine 50 mg tablet TAKE 3 TABLETS BY MOUTH AT BEDTIME active Not Available Not Available No t Available Chest Congestion Relief 100 mg/5 mL oral liquid TAKE 20 ML BY MOUTH 3 (THREE) TIMES A DAY NEEDED FOR COUGH OR CONGESTIO N 03/31 completed Not Available Not Available Not Available Pristiq 50 mg tablet,exte nded release 08/24 completed Not Available Not Available Not Available Pristiq 100 mg tablet,exte nded release 08/24 completed Not Available Not Available Not Available Virtussin AC 10 mg-100 mg/5 mL oral liquid TK 5 ML PO Q 4 H PRF COUGH 08/24 completed Not Available Not Available Not Available Saxenda 3 mg/0.5 mL (18 mg/3 mL) subcutaneou s pen injector 08/24 completed Not Available Not Available Not Available Fluvirin 4265-2333 45 mcg (15 mcg x 3)/0.5 mL intramuscul ar suspension 08/24 completed Not Available Not Available Not Available Afluria Quad 5279-7038 (PF) 60 mcg (15 mcg x 4)/0.5 mL IM syringe 08/24 completed Not Available Not Available Not Available Trelegy Ellipta 200 mcg-62.5 mcg-25 mcg powder for inhalation INHALE 1 PUFF DAILY active Not Available Not Available No t Available Vitals Date Recorded Body weight Systolic And Diastolic Provider Name and Address Organization Details Last Updated DateTime 09/16/2020 230361.05 g 118/74 mm[Hg] SANDRA Avalos [facility] 09/16/2020 12:06:05 Date Recorded Body height Body mass index (BMI) Body weight Systolic And Diastolic Provider Name and Address Organization Details Last Updated DateTime 03/31/2024 162.56 cm 38.1 kg/m2 097894.65 g 121/77 mm[Hg] SANDRA Avalos [facility] 03/31/2024 11:44:02 Date Recorded Body weight Systolic And Diastolic Provider Name and Address Organization Details Last Updated DateTime 06/08/2020 960424.06 g 124/78 mm[Hg] SANDRA Avalos [place] Aravind [facility] 06/08/2020 14:05:56 Date Recorded Body weight Systolic And Diastolic Provider Name and Address Organization Details Last Updated DateTime 08/03/2020 148740.3 g 122/76 mm[Hg] Lida Steel Nando [facility] 08/03/2020 14:30:03 Date Recorded Body height Body mass index (BMI) Body weight Systolic And Diastolic Provider Name and Address Organization Details Last Updated DateTime 08/24/2022 162.56 cm 37.9 kg/m2 496051.2 g 132/80 mm[Hg] SANDRA Avalos [facility] 08/24/2022 11:57:11 Social History Question Answer Notes LastModified by Organizat ion Details LastModified Time Tobacco Smoking Status Current Every Day Smoker Brigida Skinner RN [facility], [facility] 07/11/2014 15:58:49 Do You Have An Advance Directive? No Information not available 06/08/2020 Is Blood Transfusion Acceptable In An Emergency? Yes Information not available 06/08/2020 What Is Your Level Of Caffeine Consumption? Occasional Information not available 06/08/2020 How Much Tobacco Do You Chew? None Information not available 06/08/2020 What Type Of Diet Are You Following? REGULAR Information not available 06/08/2020 What Was The Date Of Your Most Recent Tobacco Screening? 03/31/2024 Information not available 03/31/2024 How Many Children Do You Have? 0 [email or web address] Information not available 07/11/2014 What Is Your Current Pack Years? 20-29packyears Information not available 08/24/2022 Performs Monthly Self-breast Exam? Yes Information not available 06/08/2020 Seat Belts Used Routinely Yes Information not available 06/08/2020 At What Age Did You Start Smoking Tobacco? 30 Information not available 03/31/2024 How Much Tobacco Do You Smoke? 2 PPD Trying To Quit. 03/31/24 Information not available 03/31/2024 General Stress Level Medium Information not available 06/08/2020 Do You Use Sunscreen Routinely? Yes Information not available 06/08/2020 Has Tobacco Cessation Counseling Been Provided? Yes Information not available 08/24/2022 On What Date Was Tobacco Cessation Counseling Provided? 03/31/2024 Information not available 03/31/2024 How Many Years Have You Smoked Tobacco? 23 Information not available 03/31/2024 Sex: Female Functional Status Question Answer Note LastModified by Organizat ion Details LastModified Time Do you or have you ever used any other forms of tobacco or nicotine? No Information not available 08/24/2022 What is your level of alcohol consumption? None [email or web address] Information not available 07/16/2014 Do you or have you ever used smokeless tobacco? Never used smokeless tobacco Information not available 06/08/2020 Do you or have you ever used e-cigarettes or vape? Never used electronic cigarettes Information not available 06/08/2020 What is your exercise level? Occasional Information not available 06/08/2020 Mental Status None recorded. Family History Relationship Description Onset Age of this Age Resolved Age Notes LastModified by Organization Details LastModified Time Mother Malignant neoplasm of breast [email or web address] Not available 03/2016 11:00:30 Medical History Condition Response Anxiety/Depression Y Gynecological History Statement/Question Response Abnormal Pap Yes Menses Monthly N STIs/STDs N HPV Vaccine N Date of Last Pap Smear 03/31/2024 Sexual Problems? N Current Control Method Menopause Most Recent Mammogram 02/04/2025 LMP Approximate Obstetrics History GPAL:G 2 P 0 0 2 0 Type Value Induced 2 Living 0 Total 2 Immunizations Vaccine Type Date Status Note Provider Nam e and Address Organization Details Recorded Time Influenza, split virus, quadrivalent, preservative 9 completed Lida Steel R[place], [place] - [facility] 08/24/2022 11:52:16 Influenza, split virus, trivalent, PF 5 completed Lida Steel [place] [facility] 08/24/2022 11:52:16 Influenza, split virus, trivalent, preservative 7 completed Lida Steel [place] [facility] 08/24/2022 11:52:16 Influenza, split virus, quadrivalent, PF 1 [email or web address] Hilton Milvia, [place] [facility] 08/24/2022 11:52:16 Influenza, split virus, trivalent, preservative 4 completed Lida Milvia, [place] [facility] 08/24/2022 11:52:16 COVID-19, mRNA, LNP-S, PF, 30 mcg/0.3 mL dose 1 completed Lida Milvia, [place] [facility] 08/24/2022 11:52:16 Influenza, split virus, quadrivalent, PF 0 completed Lida Milvia, [place] [facility] 08/24/2022 11:52:16 COVID-19, mRNA, LNP-S, PF, 30 mcg/0.3 mL dose 1 completed Lida Milvia, [place] [facility] 08/24/2022 11:52:16 Influenza, split virus, quadrivalent, PF 6 completed Lida Milvia, [place] [facility] 08/24/2022 11:52:16 COVID-19, mRNA, LNP-S, PF, 30 mcg/0.3 mL dose 1 completed Lida Milvia, [place] [facility] 08/24/2022 11:52:16 Influenza, split virus, quadrivalent, PF 8 completed Lida Milvia, [place] [facility] 08/24/2022 11:52:16 zoster recombinant 4 completed Lida Milvia, [place] [facility] 03/31/2024 11:37:22 zoster recombinant 4 completed Lida Milvia, [place] [facility] 03/31/2024 11:37:22 Influenza, split virus, trivalent, preservative 3 completed Lida Milvia, [place] [facility] 03/31/2024 11:37:22 Past Encounters Encounter ID Performer Location Encounter Start Date Encounter Closed Date Diagnosis/Indication Diagnosis SNOMED-CT Code Diagnosis ICD10 Code Diagnosis IMO Codes Diagnosis Note [id number] Ezra Segundo, MD [facility] ([place] [address]) [address] [facility] [place] [address] 07/16/2014 16:23:18 07/17/2014 11:07:06 Cystocele 401292778 Candidiasis of skin 57925130 Female uri nary stress incontinence 55381125 [id number] MD [facility] ([place] [address]) [address] [facility] [place] [address] 09/09/2014 09:34:37 09/09/2014 14:43:26 Dysplasia of cervix 40856144 Candidiasis of skin 48890798 Female uri nary stress incontinence 40404782 [id number] MD [facility] ([place] [address]) [address] [facility] [place] [address] 10/21/2014 09:57:42 10/21/2014 18:01:49 Dysplasia of cervix 52261141 [id number] MD [facility] ([place] [address]) [address] [facility] [place] [address] 04/26/2015 12:37:49 04/26/2015 15:00:08 Dysplasia of cervix 23056418 [id number] MD [facility] ([place] [address]) [address] [facility] [place] [address] 09/03/2015 10:52:52 09/03/2015 12:08:49 Dysplasia of cervix 60601572 N87.0 [id number] MD [facility] ([place] [address]) [address] [facility] [place] [address] 08/10/2017 14:07:52 08/13/2017 14:41:28 Body mass index 30+ - obesity 052543682 Z68.37 Gynecologi c examination 35480936 Z01.419 Screening for malignant neoplasm of breast 973583355 Z12.31 [id number] MD [facility] 14 OB 4 [facility] [place] [address] 01/28/2018 11:12:31 02/01/2018 13:19:56 Low grade squamous intraepithelial lesion on cervical Papanicolaou smear 9591375806 9105 R87.414 [id number] MD [facility] 14 OB 4 [facility] [place] [address] 05/16/2018 14:00:52 05/17/2018 13:20:31 Female urinary stress incontinence 32688613 N39.3 [id number] MD [facility] De La [facility] 14 OB 4 [facility] [place] [address] 08/13/2018 14:19:22 08/13/2018 16:18:08 Gynecologic examination 28273354 Z01.419 Screening for malignant neoplasm of breast 413256366 Z12.31 Candidiasis of skin 4988 3006 B37.2 [id number] MD [facility] De La [facility] [address] [place] [address] [place] [address] 11/11/2018 15:07:06 11/12/2018 09:58:36 Folliculitis 99930359 L73.9 [id number] MD [facility] De La [facility] 14 OB 4 [facility] [place] [address] 06/08/2020 13:55:29 06/09/2020 13:40:57 Gynecologic examination 19132113 Z01.419 Screening for malignant neoplasm of breast 808055714 Z12.31 Candidiasis of skin 4988 3006 B37.2 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 [id number] MD [facility] 14 OB 4 [facility] [place] [address] 08/03/2020 14:20:05 08/04/2020 17:54:25 Candidiasis of skin 82162899 B37.2 [id number] MD [facility] De La [facility] 14 OB 4 [facility] [place] [address] 09/16/2020 11:47:16 09/17/2020 13:35:56 Right flank pain 359115849 R10.9 [id number] MD [facility] 14 OB 4 [facility] [place] [address] 08/24/2022 10:59:44 08/25/2022 17:39:48 Depressive disorder 55511831 F32.A Obesity 975629492 E66.9 Smoker 67452957 F17.200 Gynecologi c examination 19127390 Z01.419 History of abnormal cervical Papanicolaou smear 126667435 Z87.42 Screening for malignant neoplasm of breast 535001052 Z12.31 [id number] MD [facility] De La [facility] 14 OB 4 [facility] [place] [address] 03/31/2024 11:31:03 04/17/2024 14:10:02 Smoker 38946155 F17.200 Obesity 351207825 E66.8 Positive s creening for depression on PHQ-9 (Patient Health Questionnaire 9) 3041967110 28302 Z13.31 Gynecologi c examination 38742595 Z01.419 Health Concerns Section Related Observation LastModified by Organization Detai ls LastModified Time None Recorded Concern Status LastModified by Organization Details LastModified Time None Recorded Advance Directives Directive N: Payers Insurance Date Sequence Insurance Name Policy Number Policy Blas Covered Member ID Blas Member ID Guarantor Name 05/11/2025 [place] [facility] - [facility] Loretta Vang [id number] Loretta Vang 07/27/2025 2 [place] Loretta Vang [id number] Loretta Vang 05/11/2025 2 [employer] App (MEDICARE SUPPLEMENT) Loretta Vang [id number] Loretta Vang 05/11/2025 1 [employer] (MEDICARE REPLACEMENT /ADVANTAGE - PPO) Loretta Vang [id number] Loretta Vang 05/11/2025 1 [employer]ET[employer] [id number] Loretta Vang [id number] Loretta Vang 05/11/2025 1 [place] [id number] Loretta Vang [id number] Loretta Vang 05/11/2025 2 [place] [id number] Loretta Vang [id number] Loretta Vang 04/16/2015 1 [place] [id number] George Vang [id number] Loretta Vang 05/11/2025 2 [place] [id number] Loretta Vang [id number] Loretta Vang 10/25/2016 1 [place] [id number] George Vang [id number] Loretta Vang 07/27/2025 1 [employer] (MEDICARE REPLACEMENT /ADVANTAGE - HMO) [id number] Loretta Vang [id number] Loretta Vang Notes Date Note Type Note Provider Name and Address Organization Details Recorded Time 0 text/html Annual GYNReported by PatientGenitourinary symptomsFor urinary symptoms, patient reportsno hematuriaandno incontinence. For vulva, patient reportsno genital lesion. For vagina, patient reportsnormal vaginal discharge.Breast symptomsFor breast, patient reportsno breast pain,no breast lump, andno nipple discharge.Endocrine symptomsFor sexual complaints, patient reportsno sexual complaints,no pain during intercourse, andnormal libido. For menopausal symptoms, patient reportsno menopausal symptomsandnormal vaginal lubrication.Psychological symptomsFor psychological symptoms, patient reportsno depression,no anxiety, andno pmdd.ROS as noted in the HPI SANDRA Avalos, [place] - [facility] 06/08/2020 14:24:30 0 text/html was here in may with bilateral severe cutaneous groin yeast.got 3 diflucan and reccomnded some antifungal cream returns with one-sided issue today ( rt.) Ezra Segundo MD Attn: Accounting[address] [place], [address], [facility] 08/03/2020 14:41:46 1 text/html unusual hx of left flank and back pain over last month. Has had a large workup according to patient including US and CT ( we dont have results) Was told to come for a pelvic exam to rule out [employer] issues. Ezra Segundo MD Attn: Accounting[address] [place], [address], [facility] 09/16/2020 12:24:34 2 text/html Annual GYNReported by PatientGenitourinary symptomsFor urinary symptoms, patient reportsno hematuriaandno incontinence. For vulva, patient reportsno genital lesion. For vagina, patient reportsnormal vaginal discharge.Breast symptomsFor breast, patient reportsno breast pain,no breast lump, andno nipple discharge.Endocrine symptomsFor sexual complaints, patient reportsno sexual complaints,no pain during intercourse, andnormal libido. For menopausal symptoms, patient reportsno menopausal symptomsandnormal vaginal lubrication.Psychological symptomsFor psychological symptoms, patient reportsno depression,no anxiety, andno pmdd.ROS as noted in the HPI Ezra Segundo MD Attn: Accounting[address] [place], [address], [facility] 08/24/2022 12:13:47 4 text/html Annual GYNReported by PatientGenitourinary symptomsFor urinary symptoms, patient reportsno hematuriaandno incontinence. For vulva, patient reportsno genital lesion. For vagina, patient reportsnormal vaginal discharge.Breast symptomsFor breast, patient reportsno breast pain,no breast lump, andno nipple discharge.Endocrine symptomsFor sexual complaints, patient reportsno sexual complaints,no pain during intercourse, andnormal libido. For menopausal symptoms, patient reportsno menopausal symptomsandnormal vaginal lubrication.Psychological symptomsFor psychological symptoms, patient reportsno depression,no anxiety, andno pmdd.ROS as noted in the HPI was just in hospital for 3 days after becoming lightheaded after a PFT. Has emphysema and COPD, still smoking despite warnings.Im probably goingto soon. Ezra Segundo MD Attn: Accounting[address] [place], [address], [facility] 03/31/2024 12:05:21 OBGyn Episode No OBEpisode recorded.
--- OUTSIDE RECORDS SUMMARY | 2025-08-22 09:52 | XMS_ITS | Encounter Summary ---
Author Organization [facility] Address [address] [facility] [place] [address] Care Team Providers Care Patient Support Assistant Name Role Phone Mauro Solorzano MD Primary Care Provider [phone] Encounter Details Date Type Department Care Team (Late st Contact Info) Description 12/10/2020 Lab Requisition [facility] [address] [place] [address] [place] [address] Social History Tobacco Use Types Packs/Day Years Used Date Smoking Tobacco: Never Assessed Comments Unknown Sex and Gender Information Value Date Recorded Sex Assigned at Not on file 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 Gender Identity Not on file Sexual Orientation Not on file documented as of this encounter Plan of Treatment Not on file documented as of this encounter Procedures Procedure Name Priority Date/Time Associated Diagnosis Comments DERMATOPATHOLOGY Routine 12/08/2020 12:0 0 AM CDT documented in this encounter Results * DERMATOPATHOLOGY (12/08/2020 12:00 AM CDT) Case Report Dermatopathology Report Case: [id number] Authorizing Provider: Abilio Tucker MD Collected: 12/08/2020 12:00 AM Ordering Location: [facility] Received: 12/10/2020 08:39 AM Pathologist: Abiodun Patel MD Specimen: Skin, right posterior parietal scalp 12:58 PM CDT DERMATOPATHOLOGY LABORATORY Final Diagnosis Specimen A. SKIN, right posterior parietal scalp: TRICHILEMMAL (PILAR) CYST WITH CALCIFICATION (L72.12) 12:58 PM CDT DERMATOPATHOLOGY LABORATORY Amendment electronically signed by Abiodun Patel MD on 12/24/2020 at 1258 CDT at 1348 CDT Clinical History R/O SQ mass vs Pilar cyst vs other. 12:58 PM CDT DERMATOPATHOLOGY LABORATORY Gross Description Specimen A: Received is one formalin filled container labeled with the patients name and designated right scalp above ear. The specimen consists of a [id number] excision of skin. The specimen is serially sectioned and a videotape sales representative section is submitted in cassette 1. Jar 1. 12:58 PM CDT DERMATOPATHOLOGY LABORATORY Microscopic Description Specimen A. SKIN, right posterior parietal scalp: Sections show a cyst that is lined by stratified squamous epithelium that shows trichilemmal keratinization (no granular layer). There is homogeneous pink keratin and aggregates of homogenous amorphous basophilic material consistent with calcium within the cyst. 12:58 PM CDT DERMATOPATHOLOGY LABORATORY Disclaimer An external and internal positive and negative controls are appropriate for the histochemical, immunohistochemical and immunofluorescence stain(s) in this case (if any), except where stated explicitly. The performance characteristics of the stain(s) cited in this report were developed and its performance characteristic determined by the Dermatopathology Laboratory at [facility], directed by Dr. Clint Patel. These tests need not be, and therefore are not, approved by the [place] Food and Drug Administration. The tests are used for clinical purposes. Billing Codes Specimen Charges Stain Charges 47690 1 12:58 PM CDT DERMATOPATHOLOGY LABORATORY Embedded Images 12:58 PM CDT DERMATOPATHOLOGY LABORATORY Pathology/Cytolog y TISSUE SPECIMEN FROM SKIN / Unknown 12/08/2020 12/10/2020 8:39 AM CDT Abilio Tucker MD LAB - PATHOLOGY/CYTOLOGY ORD ERABLES Edited Result - Final DERMATOPATHOLOGY LABORATORY [facility] - Department of Dermatology [facility] [address] [place] [address], [address] [phone] documented in this encounter Visit Diagnoses Not on filedocumented in this encounter Care Teams Patient Support Assistant Relationship Specialty Start Date End Date Mauro Solorzano MD PCP - General 11/24/20 documented as of this encounter
--- OUTSIDE RECORDS SUMMARY | 2025-08-22 09:52 | XMS_ITS | Encounter Summary ---
Author Organization [facility] Address [address] [place] [address] Care Team Providers Care Layout Man Name Role Phone Mauro Solorzano MD Primary Care Provider [phone] [phone] Encounter Details Date Type Department Care Team (Late st Contact Info) Description 11/25/2020 Lab Requisition [facility] Lab [address] [place] [address] [place]ilio [place] [address] Social History Tobacco Use Types Packs/Day Years Used Date Smoking Tobacco: Never Assessed Comments Unknown Sex and Gender Information Value Date Recorded Sex Assigned at Not on file 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 Gender Identity Not on file Sexual Orientation Not on file documented as of this encounter Plan of Treatment Not on file documented as of this encounter Procedures Procedure Name Priority Date/Time Associated Diagnosis Comments DERMATOPATHOLOGY Routine 11/23/2020 3:33 AM CDT documented in this encounter Results * DERMATOPATHOLOGY (11/23/2020 3:33 AM CDT) Case Report Dermatopathology Report Case: [id number] Authorizing Provider: Abilio Tucker MD Collected: 11/23/2020 03:33 AM Ordering Location: [facility] Received: 11/25/2020 06:36 AM Pathologist: Emiliana Vang MD Specimens: A) - Skin, left lateral back B) - Skin, left superior jeaneth medial pretibia C) - Skin, left lower jeaneth medial pretibia 1 2:21 PM CDT DERMATOPATHOLOGY LABORATORY Final Diagnosis Specimen A. SKIN, left lateral back: HEMANGIOMA (D18.01) Specimen B. SKIN, left superior jeaneth medial pretibia: SPONGIOTIC DERMATITIS WITH RARE EOSINOPHILS (L30.8) (see microscopic description and comment) Specimen C. SKIN, left lower jeaneth medial pretibia: HYPERPLASTIC (HYPERTROPHIC) ACTINIC KERATOSIS (L57.0) 1 2:21 PM CDT DERMATOPATHOLOGY LABORATORY at 1421 CDT Clinical History A: R/O pyogenic granuloma vs spencer angioma B: R/O Rash, nos C: R/O SCC,HAK,BCC, Le's 1 2:21 PM CDT DERMATOPATHOLOGY LABORATORY Gross Description Specimen A: Received is one formalin filled container labeled with the patient's name and designated left lateral back. The specimen consists of a shave biopsy measuring 6x5x3 mm. Jar 0. Specimen B: Received is one formalin filled container labeled with the patient's name and designated left superior jeaneth medial pretibia. The specimen consists of a shave biopsy measuring 9x8x1 mm. Jar 0. Specimen C: Received is one formalin filled container labeled with the patient's name and designated left lower jeaneth medial pretibia. The specimen consists of a shave biopsy measuring 9x7x1 mm. Jar 0. 1 2:21 PM CDT DERMATOPATHOLOGY LABORATORY Microscopic Description Specimen A. SKIN, left lateral back: In the dermis, there are dilated vascular spaces surrounded by widely spaced endothelial cells. Specimen B. SKIN, left superior jeaneth medial pretibia: There is focal parakeratosis and focal spongiosis. In the dermis there is a mainly superficial perivascular lymphohistiocytic inflammatory infiltrate with rare eosinophils. Grocott's methenamine silver (GMS) stain fails to highlight fungal elements in the available sections. Additional deeper sections were obtained and reviewed. COMMENT: The histological differential diagnosis includes an eczematous dermatitis and a hypersensitivity reaction, such as to contact or drug. Specimen C. SKIN, left lower jeaneth medial pretibia: There is hyperkeratosis alternating with parakeratosis. There is epidermal hyperplasia with disorderly maturation of keratinocytes with nuclear pleomorphism confined to the lower half of the epidermis. 1 2:21 PM CDT DERMATOPATHOLOGY LABORATORY Disclaimer An external and internal positive and negative controls are appropriate for the histochemical, immunohistochemical and immunofluorescence stain(s) in this case (if any), except where stated explicitly. The performance characteristics of the stain(s) cited in this report were developed and its performance characteristic determined by the Dermatopathology Laboratory at [facility], directed by Dr. Clint Patel. These tests need not be, and therefore are not, approved by the [place] Food and Drug Administration. The tests are used for clinical purposes. Billing Codes Specimen Charges Stain Charges 12175 89266 60500 1 1 1 01195 1 1 2:21 PM CDT DERMATOPATHOLOGY LABORATORY Embedded Images 2:21 PM CDT DERMATOPATHOLOGY LABORATORY Pathology/Cytology TISSUE SPECIMEN FROM SKIN / Unknown 11/23/2020 3:33 AM CDT 11/25/2020 6:36 AM CDT Miscellaneous samples (specimen) TISSUE SPECIMEN FROM SKIN / Unknown 11/23/2020 3:33 AM CDT 11/25/2020 6:36 AM CDT Miscellaneous samples (specimen) TISSUE SPECIMEN FROM SKIN / Unknown 11/23/2020 3:33 AM CDT 11/25/2020 6:36 AM CDT Abilio Tucker MD LAB - PATHOLOGY/CYTOLOGY ORD ERABLES Final Result DERMATOPATHOLOGY LABORATORY [facility] - Department of Dermatology [facility] Special[facility] Medicine [address] [place] [address], [address] [phone] documented in this encounter Visit Diagnoses Not on filedocumented in this encounter Care Teams Layout Man Relationship Specialty Start Date End Date Mauro Solorzano MD PCP - General 11/24/20 documented as of this encounter
--- OUTSIDE RECORDS SUMMARY | 2025-08-22 09:52 | XMS_ITS | Clinical Summary ---
Author Organization [facility] Address [address] [place] [address] Care Team Providers Care Technology Infusion Specialist Name Role Phone Unavailable Primary Care Provider Unavailabl e Social History Tobacco Use Types Packs/Day Years Used Date Smoking Tobacco: Never Assessed Comments Unknown Sex and Gender Information Value Date Recorded Sex Assigned at Not on file Legal Sex Female 8:05 PM CDT Gender Identity Not on file Sexual Orientation Not on file Plan of Treatment Health Maintenance Due Date Last Done Comments Cervical Cancer Screening Pa p Smear (Age 30 to 64) Every 3 Years 1969 Colorectal Cancer Screening Colonoscopy (10 Years) 1969 Annual Physical 1972 Hepatitis C 11/23/1987 DTaP, Tdap and Td Vaccines ( 1 - Tdap) 1988 Hepatitis B Vaccines (1 of 3 - 19+ 3-dose series) 1988 Cervical Cancer Screening Pa p with HPV Testing (Age 30 to 64) Every 5 Years 11/23/1999 Cervical Cancer Screening with HPV 11/23/1999 Mammogram Screening 2009 Pneumococcal Vaccine: 50+ Ye ars (1 of 1 - PCV) 11/23/2019 Zoster Vaccines (1 of 2) 11/23/2019 COVID-19 Vaccine ( - 2024-2 6 season) 2025 Influenza Adult (#1) 2025 Hepatitis A Vaccines Aged Out No long er eligible based on patient's age to complete this topic Meningococcal B Vaccine Aged Out No l onger eligible based on patient's age to complete this topic Meningococcal Vaccine Aged Out No micky casey eligible based on patient's age to complete this topic RSV Immunizations Under 20 Months Aged Out No longer eligible based on patient's age to complete this topic
--- OUTSIDE RECORDS SUMMARY | 2025-08-22 09:52 | XMS_ITS | Clinical Summary ---
Author Organization [facility] Address [address] [address] Care Team Providers Care Instrumental Music Teacher Name Role Phone Mauro Solorzano MD Primary Care Provider [phone] Source Comments [facility],non-owned Affiliates and Associated Physician Practices is amultiple site organization consisting of ambulatory clinics and hospital sitesin [place], [place], [place] and [place]. This disclosure is being madepursuant to the Care Everywhere program and may not contain all information available regarding this patient. 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 Gender Identity Not on file Sexual Orientation Not on file Plan of Treatment Health Maintenance Due Date Last Done Comments COLOGUARD (AGES 45-75) - COL ON CA SCREENING 1969 COLON MONITORING 1969 COLONOSCOPY - COLON CA SCREENING 1969 CT COLONOGRAPHY - COLON CA SCREENING 1969 Colorectal Cancer Screening 1969 FIT - COLON CA SCREENING 1969 FLEX SIG - COLON CA SCREENING 1969 LIPID TESTING 1969 MAMMOGRAM 1969 HIV SCREENING 1984 HEPATITIS C SCREENING 11/18/1987 DTAP/TDAP/TD VACCINES (1 - Tdap) 1988 HEPATITIS B VACCINE (1 of 3 - 19+ 3-dose series) 1988 PNEUMOCOCCAL VACCINE 50+ (1 of 1 - PCV) 11/23/2019 ZOSTER VACCINE (1 of 2) 11/23/2019 DEPRESSION SCREENING 08/27/2024 COVID-19 VACCINE (1 - 2024-2 6 season) 2025 INFLUENZA VACCINE (#1) 2025 HIB VACCINE Aged Out No longer eligi ble based on patient's age to complete this topic HPV VACCINE Aged Out No longer eligi ble based on patient's age to complete this topic MENINGOCOCCAL (Group B) VACC INE SHARED DECISION-MAKING Aged Out No longer eligibl e based on patient's age to complete this topic MENINGOCOCCAL GROUPS A/C/Y/W VACCINE Aged Out No longer eligible b ased on patient's age to complete this topic Insurance MEDICARE Care Teams Instrumental Music Teacher Relationship Specialty Start Date End Date Mauro Solorzano MD PCP - General 11/24/20
--- OUTSIDE RECORDS SUMMARY | 2025-08-22 09:52 | XMS_ITS | Encounter Summary ---
Author Organization [facility] Healthcare Address [address] [place] [address] Care Team Providers Care Wood Milling Machine Tender Name Role Phone Mauro Solorzano MD Primary Care Provider + Tha Fisher MD Primary Care Provider + [phone] Son Chong MD Unavailable [phone] Susan Bryan MA Unavailable Apurva Ayala MA Unavailable [phone] Apurva Ayala MA Unavailable [phone] Allie Herrera DRYWALL STRIPPER Unavailable Cecily Ayala LPN Unavailable [phone] Encounter Details Date Type Department Care Team (Late st Contact Info) Description 04/04/2019 Documentation [facility] Case Management [address] [place] [address] Maxine Covington RN Social History Tobacco Use Types Packs/Day Years Used Date Smoking Tobacco: Some Days Cigarettes 1 36 Started: 1989 Smokeless Tobacco: Never Alcohol Use Standard Drinks/Week Comments No 0 (1 standard drink = 0.6 oz pur e alcohol) Exercise Vital Sign Answer Date Recorde d Days of Exercise per Week 0 days 2018 Minutes of Exercise per Session 0 min 03/24/2019 Comments No Sex and Gender Information Value Date Recorded Sex Assigned at Not on file Legal Sex Female 8:03 PM [facility] Gender Identity Not on file Sexual Orientation Not on file Occupation Industry Job Start Date Job End Date none Not on file Not on file Not on file documented as of this encounter Plan of Treatment Not on file documented as of this encounter Visit Diagnoses Not on filedocumented in this encounter Additional Health Concerns Infection Onset Date Last Indicated Resolved Time COVID: Suspected 07/26/2025 07/26/2025 07/26/2025 6:43 PM [facility] documented as of this encounter Care Teams Wood Milling Machine Tender Relationship Specialty Start Date End Date Mauro Solorzano MD [address] [place] [address] PCP - General 11/24/16 02/20/23 Tha Fisher MD [address] [place] [address] PCP - General Family Medicine 02/21/23 Son Chong MD [address] [place] [address] DR PEYTON Rossi [facility] [address] [place] [address] Consulting Physician Obstetrics and Gynecology 11/27/23 Susan Bryan MA [address] [place] [address] [address] [place] [address] [employer] Care Financial Service Representative 11/27/23 11/29/23 Apurva Ayala MA [address] [place] [address] [address] [place] [address] ACO Care Financial Service Representative 03/28/24 04/01/24 Apurva Ayala MA [address] [place] [address] [address] [place] [address] ACO Care Financial Service Representative 04/03/24 04/22/24 Allie Herrera, [address] [place] [address] Price Changer 04/10/24 05/01/24 Cecily Ayala, GREASE REMOVER [address] [place] [address] [address] [place] [id number] Arm Rest Builder 07/30/25 08/02/25 documented as of this encounter
--- OUTSIDE RECORDS SUMMARY | 2025-08-22 09:52 | XMS_ITS | Clinical Summary ---
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 BLOOD ORDERABLES Final Re sult TIFFANY JOHNSON ([place]) 1 [facility] [place] [address] * Vitamin B12 (08/05/2025 3:23 PM MECHATRONICS TECHNOLOGIST) [facility] [address] Vitamin B12 698 230 - 1,250 pg/mL Comment:Testing performed by : [address], [id number] Blood 08/05/2025 3:23 PM MECHATRONICS TECHNOLOGIST 08/05/2025 8:26 PM MECHATRONICS TECHNOLOGIST Joaquina Almazan TECHNICAL MAINTENANCE TECHNICIAN LAB BLOOD ORDERABLES Final Re sult Performing Organization Address [facility] Co de Phone Number TIFFANY JOHNSON ([place]) 1 [facility] [place] [address] * (ABNORMAL) Troponin T high-sensitivity 2-hour (07/26/2025 7:31 PM MECHATRONICS TECHNOLOGIST) Trop T hs 17(H) <=14 ng/L Comment: Interpretive Data For further hscTnT resources including the diagnostic algorithm and an aid in interpretation, copy and paste this link: [email or web address].[email or web address]/show/hsTrop Current Interpretive Data last revised 2020. Trop T hs delta 0 ng/L [facility] ([place]) Trop T hs interp Insignificant [facility] ([place]) Blood 07/26/2025 7:31 PM MECHATRONICS TECHNOLOGIST 07/26/2025 7:32 PM MECHATRONICS TECHNOLOGIST Gaye CARVAJAL LAB BLOOD ORDERABLES Final Resu lt Performing Organization Address [facility]/ZIP Co de Phone Number TIFFANY JOHNSON ([place]) 1 [facility] [place] [address] * (ABNORMAL) Troponin T high-sensitivity series (baseline, 2hr, 4hr, 6hr) (07/26/2025 5:58 PM MECHATRONICS TECHNOLOGIST) Trop T hs 17(H) <=14 ng/L Comment: Interpretive Data For further hscTnT resources including the diagnostic algorithm and an aid in interpretation, copy and paste this link: https://nrl.[employer].org/show/hsTrop Current Interpretive Data last revised 2020. Blood 07/26/2025 5:58 PM MECHATRONICS TECHNOLOGIST 07/26/2025 5:59 PM MECHATRONICS TECHNOLOGIST Gaye CARVAJAL LAB BLOOD ORDERABLES Final Resu lt TIFFANY JOHNSON ([place]) 1 [facility] [place] [address] * Influenza A/B, RSV, and COVID-19 PCR Nasopharyngeal (07/26/2025 5:58 PM MECHATRONICS TECHNOLOGIST) [facility] [address] COVID-19 RNA Negative Negative Influenza A RNA Negative Negative [facility] ([place]) Influenza B RNA Negative Negative [facility] ([place]) RSV RNA Negative Negative [facility] ([place]) Comment: Interpretive data: Testing performed by [facility]. This test is performed using the [employer] Xpert Xpress CoV-2/Flu/RSV plus assay. This is a multiplex, real- time reverse transcriptase PCR assay intended for the qualitative detection of nucleic acid from SARS-CoV-2, influenza A, influenza B, and respiratory syncytial virus. This assay has been cleared by the [place] Food and Drug administration. The performance characteristics have been verified by the [facility]. Results must be considered in the clinical context, and a negative result does not rule out infection. Interpretive Data last revised 2023 Nasopharyngeal 07/26/2025 5: 58 PM MECHATRONICS TECHNOLOGIST 07/26/2025 5:59 PM MECHATRONICS TECHNOLOGIST Narrative [facility] ([place]) - 07/26/2025 6:42 PM MECHATRONICS TECHNOLOGIST Is the Patient experiencing symptoms consistent with COVID?->Yes Gaye CARVAJAL LAB MICROBIOLOGY - GENERAL ORDE RABLES Final Result TIFFANY JOHNSON ([place]) 1 [facility] [place] [address] * eGFR (07/26/2025 5:58 PM MECHATRONICS TECHNOLOGIST) [facility] [address] eGFR >90 >=60 mL/min/1. 73 m2 Comment: Interpretive Data Reference Interval Normal >/= 90 mL/min/1.73m2 Mildly decreased* 60 - 89 mL/min/1.73m2 Mildly to moderately decreased 45 - 59 mL/min/1.73m2 Moderately to severely decreased 30 - 44 mL/min/1.73m2 Severely decreased 15 - 29 mL/min/1.73m2 Kidney Failure < 15 mL/min/1.73m2 *Relative to young adult level Estimated glomerular filtration rate is determined by the 2020 CKD-EPI equation recommended by the National Kidney Foundation (A Unifying Approach to GFR Estimation: Recommendations of the NKF-ASK Task Force on Reassessing the Inclusion of Race in Diagnosing Kidney Disease, JASN 202). The CKD-EPI equation should not be used for patients with unstable renal function and has not been validated in children and those over 70. Current interpretive data was last reviewed 2021. Blood 07/26/2025 5:58 PM MECHATRONICS TECHNOLOGIST 07/26/2025 5:59 PM MECHATRONICS TECHNOLOGIST us Gaye CARVAJAL LAB BLOOD ORDERABLES Final Resu lt [facility] ([place]) 1 [facility] [place] [address] * (ABNORMAL) Differential, auto (07/26/2025 5:58 PM MECHATRONICS TECHNOLOGIST) Neutrophil abs 7.63(H) 1.50 - 6.50 K/cumm Imm gran abs 0.03 0.00 - 0.10 K/cumm [facility] ([place]) Lymphocyte abs 3.45(H) 0.80 - 3.30 K/cumm [facility] ([place]) Monocyte abs 0.67 0.20 - 0.80 K/cumm [facility] ([place]) Eosinophil abs 0.10 0.00 - 0.50 K/cumm [facility] ([place]) Basophil abs 0.06 0.00 - 0.10 K/cumm [facility] ([place]) Neutrophil pct 63.9 % [facility] ([place]) Comment: Interpretive Data Percent cell count reference ranges are not reported, since discordance with absolute values may lead to misinterpretation of CBC data. Current Interpretive Data was last revised on 2017. Imm gran pct 0.3 % [facility] ([place]) Comment: Interpretive Data Percent cell count reference ranges are not reported, since discordance with absolute values may lead to misinterpretation of CBC data. Current Interpretive Data was last revised on 2017. Lymphocyte pct 28.9 % [facility] ([place]) Comment: Interpretive Data Percent cell count reference ranges are not reported, since discordance with absolute values may lead to misinterpretation of CBC data. Current Interpretive Data was last revised on 2017. Monocyte pct 5.6 % [facility] ([place]) Comment: Interpretive Data Percent cell count reference ranges are not reported, since discordance with absolute values may lead to misinterpretation of CBC data. Current Interpretive Data was last revised on 2017. Eosinophil pct 0.8 % [facility] ([place]) Comment: Interpretive Data Percent cell count reference ranges are not reported, since discordance with absolute values may lead to misinterpretation of CBC data. Current Interpretive Data was last revised on 2017. Basophil pct 0.5 % [facility] ([place]) Comment: Interpretive Data Percent cell count reference ranges are not reported, since discordance with absolute values may lead to misinterpretation of CBC data. Current Interpretive Data was last revised on 2017. Blood 07/26/2025 5:58 PM MECHATRONICS TECHNOLOGIST 07/26/2025 5:59 PM MECHATRONICS TECHNOLOGIST us Gaye CARVAJAL LAB BLOOD ORDERABLES Final Resu lt [facility] ([place]) 1 [facility] Department of Laboratories [place], [place] [id number] * (ABNORMAL) CBC with auto differential (07/26/2025 5:58 PM MECHATRONICS TECHNOLOGIST) WBC 11.94(H) 3.80 - 9.90 K/cumm Hgb 15.2 11.9 - 15.5 g/dL [facility] ([place]) Hct 44.7 35.6 - 45.5 % [facility] ([place]) Plt 286 150 - 400 K/cumm [facility] ([place]) MPV 9.3 9.1 - 12.3 fL [facility] ([place]) RBC 4.58 3.90 - 5.20 M/cumm [facility] ([place]) MCV 97.6(H) 81.3 - 96.4 fL [facility] ([place] MCH 33.2 27.1 - 33.3 pg [facility] ([place]) MCHC 34.0 32.3 - 35.7 g/dL [facility] ([place]) RDW CV 12.5 11.1 - 14.9 % [facility] ([place]) RDW SD 44.9 35.7 - 48.[address] [address] NRBC abs 0.00 0.00 - 0.01 K/cumm [facility] Blood 07/26/2025 5:58 PM MECHATRONICS TECHNOLOGIST 07/26/2025 5:59 PM MECHATRONICS TECHNOLOGIST Gaye CARVAJAL LAB BLOOD ORDERABLES Final Resu lt [facility] 1 [facility] [place] [address] * Magnesium (07/26/2025 5:58 PM MECHATRONICS TECHNOLOGIST) Pathologist [facility] Magnesium 2.0 1.4 - 2.5 mg/dL Blood 07/26/2025 5:58 PM MECHATRONICS TECHNOLOGIST 07/26/2025 5:59 PM MECHATRONICS TECHNOLOGIST Gaye CARVAJAL LAB BLOOD ORDERABLES Final Resu lt [facility] ([place]) 1 [facility] [place] [address] * Comprehensive metabolic panel (07/26/2025 5:58 PM MECHATRONICS TECHNOLOGIST) Sodium 137 135 - 145 mmol/L Potassium, pl 3.8 3.3 - 4.9 mmol/L [facility] Chloride 101 97 - 110 mmol/L [facility]) CO2 24 22 - 32 mmol/L [facility] Anion gap 12 2 - 15 mmol/L [facility] BUN 16 6 - 25 mg/dL [facility] Creatinine 0.63 0.60 - 1.10 mg/dL [facility] ([place]) Glucose 80 70 - 199 mg/dL [facility] ([place]) Comment: Interpretive Data Fasting glucose >/= 126 mg/dl is diagnostic for diabetes. Fasting is defined as no caloric intake for at least 8 hours. Fasting glucose between 100 mg/dl to 125 mg/dl is diagnostic of prediabetes. In a patient with classic symptoms of hyperglycemia or hyperglycemic crisis, a random glucose >/= 200 mg/dl is diagnostic for diabetes. In the absence of unequivocal hyperglycemia, results should be confirmed by repeat testing. The classification and Diagnosis of Diabetes Diabetes Care 2021; 46: S19-S40. Current interpretive data was last revised 2022. Calcium 10.0 8.5 - 10.3 mg/dL [facility] ([place]) Bilirubin, total 0.3 0.1 - 1.2 mg/dL [facility] ([place]) Protein, pl 6.7 6.5 - 8.5 g/dL [facility] ([place]) Albumin 4.7 3.5 - 5.0 g/dL [facility] ([place]) Alk phos 77 40 - 130 Units/L [facility] ([place]) ALT 19 7 - 45 Units/L [facility] ([place] AST 20 10 - 45 Units/L [facility] ([place]) Blood 07/26/2025 5:58 PM MECHATRONICS TECHNOLOGIST 07/26/2025 5:59 PM MECHATRONICS TECHNOLOGIST us Gaye CARVAJAL LAB BLOOD ORDERABLES Final Resu lt [facility] ([place]) 1 [facility] [place] [address] * CT Chest WO Contrast F/U Lung Screen Protocol (04/21/2025 11:58 AM CDT) Anatomical Region Laterality Modality Chest N/A Computed Tomogra phy 04/30/2025 12:0 1 PM CDT Narrative 04/30/2025 12:06 PM CDT EXAM DESCRIPTION: CT CHEST WO CONTRAST F/U LUNG SCREEN PROTOCOL REASON FOR STUDY: Screening CT of the chest in a current smoker with a 26 pack year smoking history. Additional history: Prior exam was characterized as a Lung rads 4A with an enlarging pulmonary nodule in the medial right lower lobe measuring 0.7 cm.. TECHNIQUE: Low dose CT scan of the chest was performed without intravenous contrast using helical scanning technique. The exam extends from the lung apices through the lung bases. Automatic exposure control was used as a dose optimization technique. NOTE: This study was performed for the specific purposes of lung cancer screening and is not an alternative to diagnostic chest CT. RADIATION DOSE: CT dose index volume (CTDIvol) = 1.98 mGy COMPARISON: 01/16/2025 FINDINGS: SMOKING RELATED LUNG DISEASE: There are mild emphysematous changes of lungs with scattered subsegmental atelectasis and scarring. There is redemonstration of the scattered ground-glass centrilobular airspace opacities in the bilateral lungs, which is likely due to smoking-related respiratory bronchiolitis. There is mild biapical pleural thickening and scarring. There is no definite evidence of a pneumothorax. There are scattered bronchial wall thickening, which is likely related to chronic bronchitis/bronchiolitis. There is no definite evidence of a focal consolidation or pleural effusion. LUNG NODULES: There is redemonstration of the irregular branching nodule in the medial right lower lobe measuring 1.1 by 0.4 cm, which previously measured 1.3 by 0.4 cm (axial image 204). The size and configuration of the nodule appears grossly similar to the prior study, and therefore probably represents a focus of mucous plugging/mucoid impaction. There are additional scattered pulmonary nodules noted, similar to the prior study. For example, there is a stable subpleural 0.5 cm pulmonary nodule in the lateral right middle lobe (axial image 191). There is a stable 0.5 cm subpleural pulmonary nodule in the anterior right middle lobe (axial image 198). There is a stable subpleural 0.4 cm pulmonary nodule in the posterolateral left lower lobe (axial image 169). CORONARY ARTERY CALCIFICATION: Not identified. OTHER: The heart size is stable. There is small amount of pericardial fluid noted, similar to the prior study. There are minimal atherosclerotic changes of the thoracic aorta. There is no definite unenhanced CT evidence of mediastinal, hilar, or axillary lymphadenopathy. There are scattered subcentimeter mediastinal lymph nodes noted with the largest measuring 0.6 cm in the precarinal region (axial image 94). The right adrenal gland is grossly stable and unremarkable. There is redemonstration of the 1.7 cm nodule in the lateral limb of the left adrenal gland, which demonstrates attenuation characteristics compatible with a benign adrenal adenoma, and therefore no follow-up imaging is recommended. There is redemonstration of the nodule in the left adrenal body measuring 1.9 cm, which demonstrates attenuation characteristics compatible with benign adrenal adenoma, and therefore no follow-up imaging is recommended. There are degenerative changes of the spine. IMPRESSION: 1. Redemonstration of the irregular branching nodule in the medial right lower lobe, which is grossly similar in size and configuration in comparison to the prior study, and therefore probably represents a focus of mucous plugging/mucoid impaction. Short-term follow-up low-dose chest CT in 6 months is recommended to assess for stability as clinically indicated. 2. Additional scattered pulmonary nodules noted, similar to the prior study. 3. Mild emphysematous changes of lungs with scattered subsegmental atelectasis and scarring. 4. Redemonstration of scattered ground-glass centrilobular airspace opacities in the bilateral lungs, which is likely due to smoking-related respiratory bronchiolitis. 5. Scattered bronchial wall thickening, which is likely related to chronic bronchitis/bronchiolitis. Lung-RADS category 3: Probably benign. Recommendation: Low dose CT of chest in 6 months. THIS IS AN ELECTRONICALLY VERIFIED FINAL REPORT 04/30/2025 12:06 PM - Electronically signed by Manny Funk D.O. PS: PS Report ID: [id number] Reading Location: [id number] Procedure Note Manny Funk, DO - 04/30/2025 EXAM DESCRIPTION: CT CHEST WO CONTRAST F/U LUNG SCREEN PROTOCOL REASON FOR STUDY: Screening CT of the chest in a current smoker with a26 pack year smoking history. Additional history: Prior exam wascharacterized as a Lung rads 4A with an enlarging pulmonary nodule in the medial rightlower lobe measuring 0.7 cm.. TECHNIQUE: Low dose CT scan of the chest was performed without intravenous contrast using helical scanning technique. The exam extends from the lung apices through the lung bases. Automatic exposure control was used as adose optimization technique. NOTE: This study was performed for the specific purposes of lung cancer screening and is not an alternative to diagnostic chest CT. RADIATION DOSE: CT dose index volume (CTDIvol) = 1.98 mGy COMPARISON: 01/16/2025 FINDINGS: SMOKING RELATED LUNG DISEASE: There are mild emphysematous changes oflungs with scattered subsegmental atelectasis and scarring. There is redemonstration of the scattered ground-glass centrilobular airspaceopacities in the bilateral lungs, which is likely due to smoking-related respiratory bronchiolitis. There is mild biapical pleural thickening and scarring.There is no definite evidence of a pneumothorax. There are scattered bronchialwall thickening, which is likely related to chronic bronchitis/bronchiolitis. There is no definite evidence of a focal consolidation or pleuraleffusion. LUNG NODULES: There is redemonstration of the irregular branching nodulein the medial right lower lobe measuring 1.1 by 0.4 cm, which previouslymeasured 1.3 by 0.4 cm (axial image 204). The size and configuration of the nodule appears grossly similar to the prior study, and therefore probablyrepresents a focus of mucous plugging/mucoid impaction. There are additional scattered pulmonary nodules noted, similar to theprior study. For example, there is a stable subpleural 0.5 cm pulmonary nodulein the lateral right middle lobe (axial image 191). There is a stable 0.5 cm subpleural pulmonary nodule in the anterior right middle lobe (axial image 198). There is a stable subpleural 0.4 cm pulmonary nodule in the posterolateral left lower lobe (axial image 169). CORONARY ARTERY CALCIFICATION: Not identified. OTHER: The heart size is stable. There is small amount of pericardialfluid noted, similar to the prior study. There are minimal atheroscleroticchanges of the thoracic aorta. There is no definite unenhanced CT evidence of mediastinal, hilar, oraxillary lymphadenopathy. There are scattered subcentimeter mediastinal lymphnodes noted with the largest measuring 0.6 cm in the precarinal region (axialimage 94). The right adrenal gland is grossly stable and unremarkable. There is redemonstration of the 1.7 cm nodule in the lateral limb of the leftadrenal gland, which demonstrates attenuation characteristics compatible with abenign adrenal adenoma, and therefore no follow-up imaging is recommended. Thereis redemonstration of the nodule in the left adrenal body measuring 1.9 cm,which demonstrates attenuation characteristics compatible with benign adrenal adenoma, and therefore no follow-up imaging is recommended. There are degenerative changes of the spine. IMPRESSION: 1. Redemonstration of the irregular branching nodule in the medial right lower lobe, which is grossly similar in size and configuration incomparison to the prior study, and therefore probably represents a focus of mucous plugging/mucoid impaction. Short-term follow-up low-dose chest CT in 6months is recommended to assess for stability as clinically indicated. 2. Additional scattered pulmonary nodules noted, similar to the priorstudy. 3. Mild emphysematous changes of lungs with scattered subsegmental atelectasis and scarring. 4. Redemonstration of scattered ground-glass centrilobular airspace opacities in the bilateral lungs, which is likely due to smoking-related respiratory bronchiolitis. 5. Scattered bronchial wall thickening, which is likely related tochronic bronchitis/bronchiolitis. Lung-RADS category 3: Probably benign. Recommendation: Low dose CT of chest in 6 months. THIS IS AN ELECTRONICALLY VERIFIED FINAL REPORT 04/30/2025 12:06 PM - Electronically signed by Manny Funk D.O. PS: PS Report ID: [id number] Reading Location: [place] [address] Michi Tran DO [facility] PROCEDURES Final R esult * Screening Mammogram Bilateral W [place] (02/04/2025 7:35 AM CDT) Anatomical Region Laterality Modality Breast Bilateral Mammography Impressions 02/04/2025 5:58 PM CDT Bilateral No evidence of malignancy in either breast. OVERALL BI-RADS FINAL ASSESSMENT: 1 - Negative RECOMMENDATION: Recommend bilateral annual screening mammography. Narrative 02/04/2025 5:58 PM CDT EXAMINATION: Screening Mammogram Bilateral W [place]o: 02/04/2025 COMPARISON: Relevant prior studies available at the time of interpretation were reviewed. TECHNIQUE: Mammography was performed with 2D and digital breast tomosynthesis (DBT) images. CAD was utilized. BREAST PARENCHYMAL COMPOSITION: There are scattered areas of fibroglandular density. FINDINGS: Bilateral There is no suspicious mass, calcification, or architectural distortion in either breast. us Self Screening Mammogram IMG MAMMO PROCEDURES Fi nal Result * COLONOSCOPY (05/17/2023 8:25 AM CDT) Anatomical Region Laterality Modality Other Narrative Procedure Note Marcus Church MD - 05/17/2023 8:[address] [facility] Patient Name: Loretta Vang Procedure Date: 05/17/2023 8:25 AM Date of : 1970 Admit Type: Outpatient Age: 52 Gender: Female Attending MD: Marcus Church M.D. [facility] 1 Note Status: Finalized Patient Profile: Last Colonoscopy: 10 years ago. Procedure: Colonoscopy Indications: Positive fecal immunochemical test Referring MD: Tha Fisher M.D. Providers: Marcus Church M.D. Impression: - Hemorrhoids found on perianal exam. - Two 5 to 6 mm polyps in the descending colon andin the transverse colon, removed with a cold snare. Resected and retrieved. - The examination was otherwise normal. Recommendation: - Discharge patient to home. - Resume previous diet. - Continue present medications. - Await pathology results. - Repeat colonoscopy in 5 years for surveillance. - Return to primary care physician as previously scheduled. Medicines: Propofol per Anesthesia Complications: No immediate complications. Estimated Blood Loss: Estimated blood loss: none. Procedure: Pre-Anesthesia Assessment: - This assessment was completed [Time ofAssessment] prior to the administration of sedation. The benefits, risks and alternatives of theprocedure and sedation were discussed and informed consentwas obtained. All questions were answered. Please referto the signed informed consent document in the medical record. The bowel preparation used was Miralax and bisacodyl tablets via split dose instruction. The scope was passed under direct vision. TheColonoscope [id number] was introduced through the anus and advanced to the the cecum, identified by appendiceal orifice and ileocecal valve. The colonoscopy was performed without difficulty. The patient tolerated the procedure well. The qualityof the bowel preparation was adequate to identifypolyps 6 mm and larger in size. The ileocecal valve, appendiceal orifice, and rectum werephotographed. Findings: Hemorrhoids were found on perianal exam. Two sessile polyps were found in the descending colon and transverse colon. The polyps were 5 to 6 mm in size. These polyps were removedwith a cold snare. Resection and retrieval were complete. Verification of patient identification for the specimen was done by the physician and nurse using the patient's name and date. Estimated blood losswas minimal. The exam was otherwise without abnormality. Electronically signed by Marcus Church M.D. Marcus Churhc M.D. 05/17/2023 9:41:58 AM Number of Addenda: 0 Note Initiated On: 05/17/2023 8:25 AM Procedure Code(s): --- Professional --- 69216, Colonoscopy, flexible; with removal of tumor(s), polyp(s), or other lesion(s) by snare technique --- Technical --- [id number], Colonoscopy, flexible; with removal of tumor(s), polyp(s), or other lesion(s) by snare technique Diagnosis Code(s): --- Professional --- R19.5, Other fecal abnormalities D12.3, Benign neoplasm of transverse colon (hepatic flexure orsplenic flexure) D12.4, Benign neoplasm of descending colon K64.9, Unspecified hemorrhoids --- Technical --- R19.5, Other fecal abnormalities D12.3, Benign neoplasm of transverse colon (hepatic flexure orsplenic flexure) D12.4, Benign neoplasm of descending colon K64.9, Unspecified hemorrhoids CPT copyright 2020 [employer]. All rights reserved. The codes documented in this report are preliminary and upon supervisor motorcycle repair shop reviewmay be revised to meet current compliance requirements. Recognized by the [employer] for promoting quality in endoscopy Marcus Church MD ENDOSCOPY PROCEDURES Final Re sult from Last 3 Months or Most Recently Relevant to Health Maintenance Insurance [employer] CHOICE MEDICARE PPO [employer] MEDICARE GOLD AETNA MEDICARE GOLD Advance Directives For more information, please contact: [phone] Documents on File Type Date Recorded Patient Coupon Manifest Clerk Expl anation ADVANCE DIRECTIVE 08/22/2018 5:43 PM * Full Code (Latest Code Status on File) Date Activated Date Inactivated Comments 05/19/2024 7:57 AM 05/19/2024 2:40 PM * Full Code Date Activated Date Inactivated Comments 05/19/2024 7:57 AM 05/19/2024 7:57 AM * Full Code Date Activated Date Inactivated Comments 03/26/2024 12:56 PM 03/27/2024 9:37 PM * Full Code Date Activated Date Inactivated Comments 05/17/2023 8:25 AM 05/17/2023 2:21 PM * Full Code Date Activated Date Inactivated Comments 05/17/2023 8:25 AM 05/17/2023 8:25 AM Care Teams Trash Hauler Relationship Specialty Start Date End [place] [id number] PCP - General Family Medicine 02/21/23 Son Chong MD [address] [place] [address] DR [address]D [address] [address] Consulting Physician Obstetrics and Gynecology 11/27/23
[2025-08-22 09:54] VITALS: BP 143/74; PULSE 100; RESP 16; TEMP 36.7; O2SAT 99
--- NOTE | 2025-08-22 10:44 | ED.NAVMDI ---
HPI - Nausea/Vomiting/Diarrhea General Chief complaint: Nausea/Vomiting/Diarrhea Stated complaint: trouble holding bowels/urination Time Seen by Provider: 08/22/25 10:25 Source: patient and RN notes reviewed Mode of arrival: ambulatory Limitations: no limitations History of Present Illness HPI Narrative: 54-year-old female presents Express Care complaining of diarrhea for 1.5 weeks. Patient denies any abdominal pain, nausea, vomiting, chest pain, breathing problems, fevers, body aches, chills, any other symptoms. Denies any black or tarry stools or blood in her stools. Patient reports having brown watery stools. Patient says she has episodes a few times a day and she is having issues with having accidents at night. Your patient's try some Pepto and antidiarrheal medication without relief. Patient has not taken anything today for it. Related Data Home Medications ?Medication ?Instructions ?Recorded ?Confirmed ?Last Taken ?Type divalproex 500 mg tablet,extended 1,500 mg PO HS 03/27/20 05/28/24 Unknown History release 24 hr venlafaxine 150 mg 150 mg PO DAILY 03/27/20 05/28/24 Unknown History capsule,extended release 24 hr lamotrigine 200 mg tablet 200 mg PO BID 08/23/23 05/28/24 Unknown History quetiapine 50 mg tablet 50 mg PO TID 08/23/23 05/28/24 Unknown History fluticasone fur. 200 mcg-umeclid 1 inh inhalation DAILY 05/28/24 05/28/24 Unknown History 62.5 mcg-vilant 25 mcg inhalat.powder (Trelegy Ellipta) omeprazole 20 mg capsule,delayed 20 mg PO DAILY 05/28/24 05/28/24 Unknown History release atorvastatin 80 mg tablet mg 08/22/25 Unknown History Allergies Allergy/AdvReac Type Severity Reaction Status Date / Time No Known Allergies Allergy Verified 08/22/25 10:03 Review of Systems Review of Systems: CONSTITUTIONAL: Denies fever, chills, or sweats. EYES: Denies visual changes, redness, or discharge. ENT: Denies rhinorrhea, congestion, sore throat, or otalgia. CARDIOVASCULAR: Denies chest pain, palpitations, or edema. RESPIRATORY: Denies cough or dyspnea. GASTROINTESTINAL: Denies abdominal pain, nausea, vomiting. Positive for diarrhea. GENITOURINARY: Denies dysuria or hematuria. SKIN: Denies rash or itching. MUSCULOSKELETAL: Denies back pain, joint pain, or myalgia. NEUROLOGIC: Denies headache, numbness, or weakness. PSYCHIATRIC: Denies anxiety or depression. All other systems reviewed are negative, except as documented in HPI. [facility] Past Medical History Medical History COPD (chronic obstructive pulmonary disease) Depression Tremor of both hands Anxiety and depression Surgical History Surgical History No pertinent past surgical history Family History Family History Mother Family history non-contributory Social History Social History Smoking status: Current every day smoker Substance use: never Lack of Transportation: No Lack of Food: Never True Current Housing: I Have Housing Concerned About Future Housing: No Difficulty Paying Gas/Electric Bills: No Difficulty Paying for Meds: No Currently Unemployed: No Education: Trade/Vocational Certificate Difficulty w/ Childcare or Family Care: No Gender identity (if verbalized by the patient): Female Spiritual care concerns: No Comments At the time of my signature, I reviewed and agree with the nursing past medical, surgical, social, and family history. There is no relevant family history pertinent to the patient complaint. Exam Narrative: GENERAL: This is a well-nourished, well-developed adult, in no apparent distress. They are non ill-appearing, nontoxic appearing. HEAD: normocephalic, atraumatic. EYES: Sclera clear/white. Conjunctiva normal. Vision is grossly intact. Extraocular movements intact EARS: External ears normal,Hearing grossly intact. NOSE: External nose normal THROAT: Mucous membranes moist, NECK: Neck supple, non-tender without lymphadenopathy, masses or thyromegaly. CARDIOVASCULAR: Regular rate and rhythm without murmurs, gallops, or rubs. RESPIRATORY: Clear to auscultation. Breath sounds equal bilaterally. No wheezes, rales, or rhonchi. GASTROINTESTINAL: Abdomen soft, non-tender, nondistended. Bowel sounds are active. No hepato-splenomegaly, or palpable masses. No guarding or rigidity. No rebound tenderness. SKIN: warm, Dry, intact with no suspicious lesions or rash, good texture and turgor. NEURO: awake, alert, and oriented to person, place and time. There were no obvious focal neurologic abnormalities. EXTREMITIES: No joint tenderness, effusion, or edema noted. BACK: Nontender without deformity. Course Course Level of Care: Express Care Visit Vital Signs Vital signs: Vital Signs Temperature 98.0 F 08/22/25 09:54 Pulse Rate 100 08/22/25 09:54 Respiratory Rate 16 08/22/25 09:54 Blood Pressure 143/74 H 08/22/25 09:54 Pulse Oximetry 99 08/22/25 09:54 Oxygen Delivery Room Air 08/22/25 09:54 Temperature 98.0 F 08/22/25 09:54 Pulse Rate 100 08/22/25 09:54 Respiratory Rate 16 08/22/25 09:54 Blood Pressure 143/74 H 08/22/25 09:54 Pulse Oximetry 99 08/22/25 09:54 Oxygen Delivery Room Air 08/22/25 09:54 [facility] MDM Narrative Medical decision making narrative: Informed patient to increase the use of Imodium have close follow-up with PCP especially the diarrhea does not improve. Patient is not appear clinically dehydrated, moist mucous membranes, no tachycardia. No skin tenting. Patient nontoxic appearing, no apparent distress. No peritoneal findings on exam. Discussed supportive care. Discussed physical exam findings. Advised supportive measures and signs/symptoms to go to the ER. Pt is appropriate for outpt treatment and f/u. Differential Diagnosis Differential Diagnosis: Differential diagnostic considerations for nausea/vomiting/diarrhea include gastroenteritis, appendicitis, IBD, intestinal obstruction, clostridium difficile, food poisoning, peritonitis, IBS, dehydration, ischemic bowel, ACS, colitis, functional diarrhea Critical Care Time Critical Care Time Critical Care Time: No Discharge Plan Discharge Clinical Impression: Diarrhea Qualifiers: Diarrhea type: unspecified type Qualified Code(s): R19.7 - Diarrhea, unspecified Patient Disposition: Home Condition: Stable Instructions: Antibiotic Form, Acute Diarrhea (ED) Additional Instructions: He may take Imodium (Loperamide) 4mg by mouth followed by 2mg after each loose stool for a maximum of 16mg in a day (No more than 8 tablets). Limit use to less than 2 days. Drink plenty of fluids, supplement with electrolytes drinks such as Pedialyte, body armor, Gatorade. Eat a bland diet such as those, rice, toast, oat, applesauce to help with the diarrhea. Please follow-up with her doctor in 3-5 days. If you continued to have uncontrollable diarrhea, you developed abdominal pain, fevers, he started to vomit, concerns for dehydration, or any serious concerns please go to the ER. Patient Language: Gambian Prescriptions: No Action venlafaxine 150 mg capsule,extended release 24hr 150 mg PO DAILY divalproex 500 mg tablet extended release 24 hr 1,500 mg PO HS quetiapine 50 mg tablet 50 mg PO TID lamotrigine 200 mg tablet 200 mg PO BID omeprazole 20 mg capsule,delayed release(DR/EC) 20 mg PO DAILY Trelegy Ellipta 200-62.5-25 mcg blister with device 1 inh INHALATION DAILY naproxen 500 mg tablet 500 mg PO BID PRN (Reason: pain) Qty: 30 0RF atorvastatin 80 mg tablet Follow-up/Referrals: Harms,Tha Zeng M.D. [Primary Care Provider] Stand Alone Forms: Work/School Release IP Time of Disposition: 10:42
== END 2025-08-22 10:49 | disposition home or self-care (01) ==
PROVIDERS: PCP Family Medicine
DX: R11.2 Nausea with vomiting, unspecified (principal); R19.7 Diarrhea, unspecified; J44.9 Chronic obstructive pulmonary disease, unspecified
CPT/HCPCS: 99211; G0463